=== PATIENT | female | born 1945 | race Caucasian/White ===

== ENCOUNTER 2023-04-18 08:17 | Outpatient (AMB) | payer OTHER, MEDICAID, SELFPAY ==
[2023-04-18 08:23] VITALS: BP 98/60; PULSE 66; O2SAT 96; BMI 24.5
--- NOTE | 2023-04-18 08:23 | MHC.PC.OV ---
Vital Signs 04/18/23 08:23 Height 4 ft 9 in Weight 113 lb 2 oz BMI 24.5 BP 98/60 Blood Pressure Location Rt brachial Position Sitting Pulse 66 Pulse Source Pulse Oximeter Pulse Oximetry (%) 96 Oxygen Delivery Method Room Air Intake Visit Reasons: medication review Allergies procaine [From Novocain] Allergy (Unknown, Verified 04/18/23 08:26) unknown milk [MILK] Adverse Reaction (Unknown, Unverified 04/18/23 08:26) STOMACH UPSET SEASONAL ALLERGIES Allergy (Unknown, Uncoded 04/18/23 08:26) SINUS PROBLEMS From Novocain Adverse Reaction (Mild, Uncoded 04/18/23 08:26) PANIC ATTACK Medication List - Last Reconciled 04/18/23 by VALERY AlvaradoP- amlodipine 10 mg PO DAILY blood pressure test kit-medium As directed cetirizine 10 mg PO DAILY cholecalciferol (vitamin D3) 50 mcg PO DAILY 30 days clonidine HCl 0.2 mg PO DAILY 30 days docusate sodium (Colace) 100 mg PO DAILY lamotrigine 200 mg (2 x 100 mg) PO DAILY 30 days propranolol 20 mg PO BID Tobacco use date assessed: 04/18/23 Fall risk assessment: No Falls in past year Last assessed Fall Risk: 04/18/23 Dental Screening Dental Screen Date: 04/18/23 Did you have a dental visit in the last 12 months?: No Did you have a dental problem in the last 6 months where you did not have access to dental care?: No Was dental information given to patient?: Patient has dentist HPI medication review HPI Details HTN: Blood pressure is stable, managed with amlodipine 10mg, clonidine 0.2mg, and propranolol 20mg bid. BP is lower today, though denies any dizziness. Denies chest pain, shortness of breath, headache, dizziness, and blurred vision. Pt was found to have a 1cm proximal left ureteral stone with mild hydronephrosis (recently). Will refer to urology. Denies fever, chills, hematuria, and flank pain (currently). Due for bone density, will order. Hx of vitamin D deficiency, will order lab. Pt used to smoke a pack per day for many years, has been smoking since age 29. Will refer for low-dose CT. Pt will schedule her own mammo. Told pt that she may get her pneumonia vaccine from her pharmacy. [facility] Surgical History S/P foot surgery, left Family History Father No problems noted. Mother HTN (hypertension) Stroke Sister No problems noted. Daughter No problems noted. Social History Housing: Apartment Alcohol intake: former Patient Tobacco Use Status: Current everyday Tobacco user Cigarettes Per Day: 2 Years Smoked: 10 years ago Packs per year/per ci.00 e-Cigarette/Vaping Use: Never Used Second Hand Smoke Exposure: No Current occupational status: retired Cognitive needs: No Hearing needs: No Vision needs: No Review of Systems Const Reports as per HPI Physical exam (Primary Care) Vital Signs: Last Vital Signs Pulse 66 04/18/23 08:23 BP 98/60 04/18/23 08:23 Pulse Ox 96 04/18/23 08:23 Oxygen Delivery Method Room Air 04/18/23 08:23 BMI result Body Mass Index 24.5 Tobacco/Smoking Status: Tobacco use Status Tobacco use date assessed 04/18/23 04/18/23 08:29 Patient Tobacco Use Status Current everyday Tobacco 04/18/23 08:29 e-Cigarette/Vaping Use Never Used 04/18/23 08:29 Const General: cooperative Orientation/consciousness: patient oriented x3 Resp Effort & Inspection: normal respiratory effort Auscultation: clear to auscultation bilaterally Cardio Rate: regular rate Rhythm: regular rhythm Heart sounds: S1 normal heart sound present and S2 normal heart sound present General: Yes no CVA tenderness Back/Spine/Pelvis Back: no CVA tenderness Neuro General: patient oriented x3 Psych Appearance: grossly normal Mental Status: mental status grossly normal Speech and movement: Normal speech and movement present Affect: normal affect Attitude: cooperative Thought process: Normal thought process present Thought content: Normal thought content present Insight: Good insight present (Psych) Judgement: Good judgement present (Psych) Assessment and Plan Assessment & Plan (1) Kidney stone on left side: Code(s): N20.0 - Calculus of kidney Plan: Referred to urology (2) Hydronephrosis: Code(s): N13.30 - Unspecified hydronephrosis Plan: Referred to urology (3) HTN (hypertension): Code(s): I10 - Essential (primary) hypertension Plan: Labs ordered, continue current meds (4) Post-menopausal: Code(s): Z78.0 - Asymptomatic menopausal state Plan: Bone density ordered (5) Vitamin D deficiency: Code(s): E55.9 - Vitamin D deficiency, unspecified Plan: Vitamin D ordered (6) Smoker: Code(s): F17.200 - Nicotine dependence, unspecified, uncomplicated Plan The patient agreed to the use of a medical coding specialist for this encounter. Scribed for JESSE Mckeon by Shasha Castillo medical coding specialist, on 04/18/2023 at 08:35 EST. Orders: Orders Comprehensive Morris. Panel Fast Today I10 - Essential (primary) hypertension Lipid Panel Today I10 - Essential (primary) hypertension TSH reflex Free T4 Today I10 - Essential (primary) hypertension Complete Blood Count Auto Diff Today I10 - Essential (primary) hypertension UA CC w/rflx Micro + Cult Today I10 - Essential (primary) hypertension XR DEXA axial skeleton Today Z78.0 - Asymptomatic menopausal state Vitamin D 25-OH Total Today E55.9 - Vitamin D deficiency, unspecified Referrals Urology Referral N13.30 - Unspecified hydronephrosis, N20.0 - Calculus of kidney Thoracic Surgery Referral F17.200 - Nicotine dependence, unspecified, uncomplicated Medications: Changed From cetirizine schedule PCP appt for more refills 10 mg PO DAILY 30 tabs 0RF To cetirizine 10 mg PO DAILY 90 tabs 0RF 90 days From cholecalciferol (vitamin D3) 50 mcg PO DAILY 30 days 30 caps 3RF To cholecalciferol (vitamin D3) 50 mcg PO DAILY 90 caps 0RF 90 days Coding Level of Care Code Est Pt Level 3 (36905) Diagnoses Kidney stone on left side N20.0 Hydronephrosis N13.30 HTN (hypertension) I10 Post-menopausal Z78.0 Vitamin D deficiency E55.9 Smoker F17.200
== END 2023-04-18 08:54 | disposition home or self-care (01) ==
PROVIDERS: PCP Nurse Practitioner Family; Visit Provider Nurse Practitioner Family
DX: I10 Essential (primary) hypertension (principal); E55.9 Vitamin D deficiency, unspecified; F17.210 Nicotine dependence, cigarettes, uncomplicated; N20.0 Calculus of kidney; N13.30 Unspecified hydronephrosis; Z78.0 Asymptomatic menopausal state
CPT/HCPCS: 99213

== ENCOUNTER 2023-04-25 08:34 | Outpatient (REF) | payer OTHER, MEDICAID, SELFPAY ==
--- NOTE | ~2023-04-25 | MM_ITS ---
EXAMINATION: BONE DENSITOMETRY CLINICAL INDICATION: Menopause. COMPARISON: Baseline BD dated 10/01/2010. TECHNIQUE: Using a [employer] DXA System (software version: 13.1) manufactured by [employer], dual-energy x-ray absorptiometry was performed of the lumbar spine and left hip. The images are of good technical quality. Summary results are attached. FINDINGS: LEFT FEMUR, NECK: Current: BMD 0.478 g/cm2, Z-score -2.1, T-score -4.0, osteoporosis. Baseline: BMD 0.860 g/cm2. LEFT FEMUR, TOTAL: Current: BMD 0.517 g/cm2, Z-score -2.2, T-score -3.9, osteoporosis, 38.8% decrease from baseline (<5% change is not significant). Baseline: BMD 0.845 g/cm2. AP SPINE L1-L3 (excluding L4): The data of L1-L4 has been changed to exclude the L4 vertebral body, because degenerative sclerosis at this level may cause overestimation of lumbar spine density. Current: BMD 0.958 g/cm2, Z-score -0.1, T-score -1.8, osteopenia, 13.3% decrease from baseline (<5% change is not significant). Baseline: BMD 1.105 g/cm2. IDENTIFIED RISK FACTORS: Menopause, height loss, history of fracture (adult), osteoporosis, tobacco use (current smoker). HISTORY OF FRACTURE: Wrist. MEDICATIONS: Vitamin D. MM/XR DEXA axial skeleton IMPRESSION: 1. DIAGNOSIS: Severe osteoporosis based on the lowest T-score value of -4.0 in the femoral neck and history of fracture of wrist applying World Health Organization criteria. 2. 10-YEAR FRACTURE RISK PREDICTION, FRAX: According to the guidelines, FRAX calculation should only be performed on patients in the osteopenia bone density category. Therefore, FRAX was not performed on this patient. 3. Treatment Recommendations: NOF guidelines recommend consideration for treatment in postmenopausal women and men age 50 and older presenting with the following: -A hip or vertebral (clinical or morphometric) fracture. -T-score less than or equal to -2.5 at the femoral neck or spine after appropriate evaluation to exclude secondary causes. -Low bone mass at the hip or spine and a 10-year fracture probability by FRAX of greater than or equal to 3% for hip fracture or greater than or equal to 20% for major osteoporotic fracture based on the [place] adapted WHO algorithm. 4. Other Recommendations: All treatment decisions require clinical judgment and consideration of individual patient factors, including patient preferences, comorbidities, previous drug use, risk factors not captured in the FRAX model (e.g. frailty, falls, vitamin D deficiency, increased bone turnover, interval significant decline in bone density) and possible under or overestimation of fracture risk by FRAX. Additional medical evaluation for secondary cause of low bone mineral density may be appropriate. FUTURE SCAN RECOMMENDATION: People with diagnosed cases of osteoporosis or at high risk for fracture should have regular bone mineral density tests. For patients eligible for Medicare, routine testing is allowed once every 2 years. The testing frequency can be increased to one year for patients who have rapidly progressing disease, those who are receiving or discontinuing medical therapy to restore bone mass, or have additional risk factors.
== END 2023-04-25 08:35 | disposition home or self-care (01) ==
LOC: HO.MAMMO 08:34
PROVIDERS: PCP Nurse Practitioner Family; Visit Provider Nurse Practitioner Family
DX: Z13.820 Encounter for screening for osteoporosis (principal); Z78.0 Asymptomatic menopausal state
CPT/HCPCS: 77080

== ENCOUNTER → 2023-04-25 08:45 | Outpatient (BNV) | payer OTHER, MEDICAID, SELFPAY | PROVIDERS: PCP Nurse Practitioner Family; Visit Provider Radiology Diagnostic Radiology | DX: M81.0 Age-related osteoporosis without current pathological fracture (principal) | CPT/HCPCS: 77080 ==

== ENCOUNTER 2023-07-01 09:11 | Outpatient (AMB) | payer OTHER, MEDICAID, SELFPAY ==
--- OUTSIDE RECORDS SUMMARY | 2023-07-01 09:12 | XMS_ITS | Continuity of Care Document ---
Author Name Unknown Organization [facility] ter Address [address] [place] [id number]- Care Team Providers Care Counter Clerk [employer] Name Role Phone Jhonathan WILLIAMSON, Etienne Primary Care Physician En[place] [facility] [place] Date(s): 10/26/20 - 11/27/[address] [address] Attending Physician: Momo Gutierrez NP Admitting Physician: Momo Gutierrez NP Referring Physician: Momo Gutierrez NP Allergies, Adverse Reactions, Alerts Substance Reaction Severity Status Novocain Active Medications Amlodipine By Mouth, Daily, Maintenance, 12/10/14 12:20:45 Start Date: 12/10/14 Status: Ordered Dulcolax Tablet 5 mg, By Mouth, Daily, Maintenance, 12/10/14 12:21:16 Start Date: 12/10/14 Status: Ordered Effexor By Mouth, 0 Refills, Maintenance, 12/10/14 12:20:34 Start Date: 12/10/14 Status: Ordered ferrous sulfate 325 mg oral tablet 1 tablet = 325 mg, By Mouth, 3 times a day, 0 Refills, Maintenance, 07/11/17 10:44:38 Start Date: 07/11/17 Status: Ordered Lamotrigine By Mouth, Maintenance, 12/10/14 12:19:38 Start Date: 12/10/14 Status: Ordered Multivitamin By Mouth, Daily, 0 Refills, Maintenance, 12/10/14 12:20:58 Start Date: 12/10/14 Status: Ordered Vitamin D3 By Mouth, 0 Refills, Maintenance, 12/10/14 12:20:04 Start Date: 12/10/14 Status: Ordered Vitamin E By Mouth, Daily, 0 Refills, Maintenance, 07/11/17 10:44:52 Start Date: 07/11/17 Status: Ordered Problem List Condition Effective Dates Status Health Status Inform ant Chronic hepatitis C with cirrhosis(Confirmed) Active Tubular adenoma of colon(Confirmed) 1 06/28/17 Active 1repeat screening colonoscopy in 2019 Social History Social History Type Response Smoking Status Current every day panchito estrada; Tobacco user in household: Yes; Type: Cigarettes entered on: 07/11/17 Sex
--- OUTSIDE RECORDS SUMMARY | 2023-07-01 09:12 | XMS_ITS | Continuity of Care Document ---
Author Name Unknown Organization [facility] Address Unknown Care Team Providers Care Ion Implant Machine Operator Name Role Phone Matt SOTO, Momo Rudolph Primary Care Physician [place] [facility] [place]21 [facility] Attending Physician: Sangeetha Russell NP Referring Physician: Momo Gutierrez NP Allergies, [...] 07/11/17 10:44:38 Start Date: 07/11/17 Status: Ordered hydrocortisone topical 25 mg suppository 1 supp = 25 mg, Rectally, 2 times a day, # 28 supp, 0 Refills, Maintenance, 07/09/21 13:40:00 EST, Suppository, [facility]/pharmacy #[id number], Partial fill upon patient request if the prescription is for a schedule II opioid drug., 145, cm, 07/09/21 13:11:00 EST... Start Date: 07/09/21 Stop Date: 07/23/21 Status: Ordered Lamotrigine By Mouth, Maintenance, 12/10/14 12:19:38 Start Date: 12/10/14 Status: Ordered Multivitamin By Mouth, Daily, 0 Refills, Maintenance, 12/10/14 12:20:58 Start Date: 12/10/14 Status: Ordered NuLYTELY with Flavor Packs oral powder for reconstitution See Instructions, per GI office, # 4,000 mL, 0 Refills, Maintenance, 07/27/21 14:36:00 EST, [facility]pharmacy #[id number], Partial fill upon patient request if the prescription is for a schedule II opioid drug., per GI office, 145, cm, 07/09/21 13:11:00 EST, Height Start Date: 07/27/21 Status: Ordered Vitamin D3 By Mouth, 0 Refills, Maintenance, 12/10/14 12:20:04 Start Date: 12/10/14 Status: Ordered Vitamin E By Mouth, Daily, 0 Refills, Maintenance, 07/11/17 10:44:52 Start Date: 07/11/17 Status: Ordered Problem List Condition Effective Dates Status Health Status Inform ant Chronic hepatitis C with cirrhosis(Confirmed) Active Tubular adenoma of colon(Confirmed) 1 06/28/17 Active 1repeat screening colonoscopy in 2019 Vital Signs Most recent to oldest [Reference Range]: 1 Height 145 cm (10/15/21 9:05 AM) Pulse Rate [55-90 bpm] 89 bpm (10/15/21 9:05 AM) Blood Pressure [90-138/55-84 mm Hg] 150/ 71mm Hg *H* (10/15/21 9:05 AM) Respiratory Rate [16-30 br/min] 16 br/mi n (10/15/21 9:05 AM) Temperature [96.8-100.4 DegF] 97.1 DegF (10/15/21 9:05 AM) Social History Social History Type Response Smoking Status Current every day sm oker; Tobacco user in household: Yes; Type: Cigarettes entered on: 07/11/17 Sex
--- OUTSIDE RECORDS SUMMARY | 2023-07-01 09:12 | XMS_ITS | Continuity of Care Document ---
Author Name Unknown Organization [facility] counts include 234 beds at [facility] Address [address] [place] [address] [address] [place] [address]- Care Team Providers Care Corrective Therapy Aide Teacher Name Role Phone Matt SOTO, Momo Rudolph Primary Care Physician [phone] Encounter [facility] [place] [id number] Date(s): 01/05/23 - 02/16/[address] [place] [address]- Attending Physician: Joe WILLIAMSON, Georgie Weiss Referring Physician: Not on Staff, Referring MD Allergies, Adverse Reactions, Alerts Substance Reaction Severity [...] 0 Refills, Maintenance, 07/09/21 13:40:00 EST, Suppository, [facility]/pharmacy #[id number], Partial fill upon patient request if [...] EST, Height Start Date: 07/27/21 Status: Ordered Propranolol Refills 0, Maintenance, 12/15/22 16:53:00 EDT, Partial fill upon patient request if the prescription is for a schedule II opioid drug. Start Date: 12/15/22 Status: Ordered Vitamin D3 By Mouth, 0 Refills, Maintenance, 12/10/14 12:20:04 Start Date: 12/10/14 Status: Ordered Vitamin E By Mouth, Daily, 0 Refills, Maintenance, 07/11/17 10:44:52 Start Date: 07/11/17 Status: Ordered Problem List Condition Confirmation Course Effective Dates Status Health St at[facility] Informant Chronic hepatitis C with cirrhosis Confirmed Active Hemorrhoids Confirmed Active Tubular adenoma of colon 1 Confirmed 06/28/17 Active 1repeat screening colonoscopy in 2019 Social History Social History Type Response Smoking Status Current every day sm oker; Tobacco user in household: Yes; Type: Cigarettes entered on: 07/11/17 Sex Patient Care team information Care Team Personnel Name: Matt SOTO , Momo Rudolph Position: Reference Physician Member Role: PCP Address: Address: [address] [place] [address]- Care Team Related Persons Name: MAXIME TURNER Address: [place] [address]
--- OUTSIDE RECORDS SUMMARY | 2023-07-01 09:12 | XMS_ITS | Continuity of Care Document ---
Author Name Unknown Organization [facility] Address [address] [place] [address] [address] [place] [address]- Care Team Providers Care Tube Lancer Name Role Phone Matt SOTO, Momo Rudolph Primary Care Physician [place] [facility] [place] - 02/16/[address] [place], [place] [address] Attending Physician: Kristin Abdul Admitting Physician: AdmKristin lazaro Referring Physician: AdmtrKristin Allergies, Adverse Reactions, Alerts Substance Reaction Severity [...] 0 Refills, Maintenance, 07/09/21 13:40:00 EST, Suppository, [facility]/pharmacy #[id number], Partial fill upon patient request if the [...] Care team information Care Team Personnel Name: Momo Gutierrez NP Position: Reference Physician Member Role: PCP Address: Address: [address] [place] [address]- Care Team Related Persons Name: MAXIME TURNER Address: [place] [address]
--- OUTSIDE RECORDS SUMMARY | 2023-07-01 09:12 | XMS_ITS | Continuity of Care Document ---
Author Name Unknown Organization [facility] ter Address [address] [place] [address]- Care Team Providers Care Property And Casualty Insurance Agent Name Role Phone Matt SOTO, Momo Rudolph Primary Care Physician [place] [facility] - 01/28/[address] [address]- Attending Physician: Jeff Gonzalez MD Admitting Physician: Jeff Gonzalez MD Allergies, Adverse Reactions, Alerts Substance Reaction [...] 0 Refills, Maintenance, 07/09/21 13:40:00 EST, Suppository, [facility]/pharmacy #[id number], Partial fill upon patient request if [...]
--- OUTSIDE RECORDS SUMMARY | 2023-07-01 09:12 | XMS_ITS | Continuity of Care Document ---
Author Name Unknown Organization [facility] Address Unknown Care Team Providers Care Project Builder Name Role Phone Matt SOTO, Momo Rudolph Primary Care Physician [place] [facility] [place] 02/02/22 - 02/09/22 [facility] Encounter Diagnosis Hemorrhoids(Discharge Diagnosis) - 02/02/22 Attending Physician: Denise Cox NP Referring Physician: Momo Gutierrez NP Allergies, [...] 0 Refills, Maintenance, 07/09/21 13:40:00 EST, Suppository, [facility]/pharmacy #[id number], Partial fill upon patient request if the [...] ant Chronic hepatitis C with cirrhosis(Confirmed) Active Hemorrhoids(Confirmed) Active Tubular adenoma of colon(Confirmed) 1 06/28/17 Active 1repeat screening colonoscopy in 2019 Diagnosis Diagnosis Type Effective Dates Health Status Clini ge[facility]a Service Informant Hemorrhoids Discharge Diagnosis 02/02/22 Vital Signs Most recent to oldest [Reference Range]: 1 Height 142 cm (02/02/22 1:08 PM) Weight 56.3 kg (02/02/22 1:08 PM) Pulse Rate [55-90 bpm] 73 bpm (02/02/22 1:08 PM) Body Mass Index [18.5-24.99] 27.92 *H* (02/02/22 1:08 PM) Blood Pressure [90-138/55-84 mm Hg] 111/ 68mm Hg (02/02/22 1:08 PM) Respiratory Rate [16-30 br/min] 17 br/mi n (02/02/22 1:08 PM) Temperature [96.8-100.4 DegF] 97.9 DegF (02/02/22 1:08 PM) Temperature Route Temporal (02/02/22 1:08 PM) Social History Social History Type Response Smoking Status Current every day sm oker; Tobacco user in household: Yes; Type: Cigarettes entered on: 07/11/17 Sex
--- OUTSIDE RECORDS SUMMARY | 2023-07-01 09:13 | XMS_ITS | Continuity of Care Document ---
Author Name Unknown Organization [facility] Address [address] [place] [address]- Care Team Providers Care Computing Tutor Name Role Phone Matt SOTO, Momo Rudolph Primary Care Physician [phone] Encounter [facility] Date(s): 12/15/22 - 12/15/[address] [address]- Encounter Diagnosis Calculus of proximal left ureter(Final) - 12/15/22 Cirrhosis(Final) - 12/15/22 Abdominal pain(Final) - 12/15/22 Discharge Disposition: A-D/C Home Attending Physician: Bernardino Quarles MD Admitting Physician: Bernardino Quarles MD Referring Physician: Not on Staff, Referring MD [...] 0 Refills, Maintenance, 07/09/21 13:40:00 EST, Suppository, [facility]/pharmacy #[id number], Partial fill upon patient request if [...] List Condition Confirmation Course Effective Dates Status [facility] Informant Chronic hepatitis C with cirrhosis Confirmed Active Hemorrhoids Confirmed Active Tubular adenoma of colon 1 Confirmed 06/28/17 Active 1repeat screening colonoscopy in 2019 Results Radiology Reports * Exam Date Time Procedure Performing Provider Status 12/15/22 5:[address] Abd/Pelvis W/ IV Contrast Only Rashida Alexander; Auth (Verified) Notes: (CT Abd/Pelvis W/ IV Contrast Only) Reason For Exam: LLQ abdominal pain;Other: RESULT: CT Abd/Pelvis W/ IV Contrast Only CT Abd/Pelvis W/ IV Contrast Only Hx of Present Illness: c o abd pain all over for a long time worse over the last couple of days no n v d noramal bm yesteradyd +po intake denies urianry s s inc wt loss over the last month unable to see pcp; Reason: Other:; LLQ abdominal pain; Clinical Question(s): Diverticulitis; Order Comment: Patient unable to tolerate PO contrast. TECHNIQUE: Spiral CT through the abdomen and pelvis with IV contrast formatted in 3 planes. 100 cc of Omnipaque 300 was administered intravenously. This study was performed without oral contrast. Weight-based protocol using automatic tube modulation was used to optimize exposure parameters. CTDIvol Body: 9.99 mGy, DLP Body: 438 mGy*cm. COMPARISON: MRI 09/20/2019 FINDINGS: Nodular liver contour consistent with the patient's history of cirrhosis. Cholelithiasis. Mild pancreatic ductal dilatation as noted on prior MRI. Too small to characterize low-attenuation foci within the kidneys are likely small cysts. Inferior pole right renal cyst. 0.5 cm left renal stone. 1 cm proximal left ureteral stone with mild left hydronephrosis. Hounsfield measurements of the stone approximately 4245-1728. 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 IMPRESSION: 1 cm proximal left ureteral stone with mild left hydronephrosis. Findings were noted on the MRI from 09/20/2019. Other chronic findings are outlined above. A critical result message ([place]) has been communicated via the [employer] system on 12/15/2022 7:19 PM, Message ID [id number]. WSN: [id number] Ordering Physician: Bernardino Quarles Dictated By: Carrington Brady MD Dictated Date/Time: 12/15/22 7:19 pm Reviewed By: Carrington Brady MD Signed By: Carrington Brady MD Signed Date/Time: 12/15/22 7:19 pm Transcribed By: LESLYE Transcribed Date/Time: 12/15/22 7:09 pm Vital Signs Most recent to oldest [Reference Range]: 1 2 3 Height 150 cm (12/15/22 8:24 PM) 150 cm (12/15/22 7:16 PM) 150 cm (12/15/22 4:53 PM) Weight 50 kg (12/15/22 4:53 PM) Oxygen Saturation [94-100 %] 93 % *L* (12/15/22 8:24 PM) 91 % *L* (12/15/22 7:16 PM) 95 % (12/15/22 4:53 PM) Pulse Rate [55-90 bpm] 72 bpm (12/15/22 8:24 PM) 72 bpm (12/15/22 7:16 PM) 83 bpm (12/15/22 4:53 PM) Blood Pressure [90-138/55-84 mm Hg] 141/88mm Hg *H* (12/15/22 8:24 PM) 143/74mm Hg *H* (12/15/22 7:16 PM) 168/94mm Hg *H* (12/15/22 4:53 PM) Respiratory Rate [16-30 br/min] 18 br/min (12/15/22 7:16 PM) 16 br/min (12/15/22 4:53 PM) Temperature [96.8-100.4 DegF] 98.4 DegF (12/15/22 8:24 PM) 98.4 DegF (12/15/22 4:53 PM) Mode of Delivery (Oxygen) Room air (12/15/22 8:24 PM) Room air (12/15/22 7:16 PM) Room air (12/15/22 4:53 PM) Blood pressure sites Arm, left (12/15/22 8:24 PM) Arm, left (12/15/22 7:16 PM) Temperature Route Oral (12/15/22 8:24 PM) Oral (12/15/22 4:53 PM) Dry Weight 50 kg (12/15/22 4:53 PM) Weight Obtained Via Standing scale (12/15/22 4:53 PM) Dry Weight Obtained Via Standing scale (12/15/22 4:53 PM) Social History Social History Type Response Smoking Status Current every day sm oker; Tobacco user in household: Yes; Type: Cigarettes entered on: 07/11/17 Sex Note * Bernardino Quarles MD: PERFORM Event Display: Patient Education Leaflets Authored Date: Multiple Documents ?? [id number] Unknown Causes of Abdominal Pain (Adult) The exact cause of your belly (abdominal) pain is not clear. Your exam and tests don't suggest a dangerous cause at this time. This does not mean that this is something to worry about. Everyone likesto know the exact cause of the problem. But sometimes with belly pain, there is no clear-cut cause,and this could be a good thing. Your symptoms can be treated, and you should feel better.?? Your condition does not seem serious now. But sometimes the signs of a serious problem may take more time to appear. For this reason,??it's important for you to watch for any new symptoms, problems,??or worsening of your condition. Over the next few days, the abdominal pain may come and go. Or it may be constant. Other common symptoms can include nausea and vomiting. Sometimes it can be difficult to tell if you feel nauseous. You may just feel bad and not connect that feeling to nausea. Constipation, diarrhea, and a fever maygo along with the pain. The pain may continue even if treated correctly over the following days. Depending on how things go, sometimes the cause can become clear and you may need more??or different treatment. You may also need other evaluations, medicines, or tests. Home care Your healthcare provider may prescribe medicine for pain, symptoms, or an infection. ??Follow the healthcare provider's instructions for taking these medicines. General care ??? Rest as much as you can until your next exam. No strenuous activities. ??? Try to not do anything that may have caused your symptoms. This might be not taking any medicines unless otherwise directed by your healthcare provider. It might be not eating certain foods or doing certain activities. ??? Find positions that ease discomfort. A small pillow placed on your belly may help relieve pain. ??? Something warm on your belly such as a heating pad may help, but be careful not to burn yourself. Diet ??? Don???t??force yourself to eat, especially if having cramps, vomiting, or diarrhea. ??? Water is important so you don't get dehydrated. Soup may also be good. Sports drinks may also help, especially if they are not too acidic. Don't drink sugary drinks as this can make things worse. Take liquids in small amounts. Don???t??guzzle them. ??? Caffeine sometimes makes the pain and cramping worse. ??? Don???t take??dairy products if you have vomiting or diarrhea. ??? Don't eat large amounts at a time. Eat several small meals during the day instead of 2 or 3 larger meals. Wait a few minutesbetween bites. ??? Eat a diet low in fiber (called a low-residue diet). Foods allowed include refined breads, white rice, fruit and vegetable juices without pulp, tender meats. These foods will pass more easily through the intestine. ??? Don???t have??whole-grain foods, whole fruits and vegetables,meats, seeds and nuts, fried or fatty foods, dairy, alcohol and spicy foods until your symptoms go away. ?? Follow-up care Follow up with your healthcare provider, or as advised, if your pain does not begin to improve in the next 24 hours. ?? Call 911 Call?? 911 if any of these occur: ??? Trouble breathing ??? Confusion ??? Fainting or loss of consciousness ??? Rapid heart rate ??? Seizure ?? When to seek medical advice Call your healthcare provider right away if any of these occur: ??? Pain gets worse or moves to theright lower abdomen ??? New or worsening vomiting or diarrhea ??? Swelling of the abdomen ??? Unable to pass stool for more than??3 days ??? Fever of 100.4??F (38??C) or higher, or as directed by your healthcare provider ??? Blood in vomit or bowel movements (dark red or black color) ??? Yellow color of eyes and skin (jaundice) ??? Weakness, dizziness ??? Chest, arm, back, neck, or jaw pain ??? Can't keep down medicines, liquids, or water because of too much vomiting ??? If you have a vagina: unexpected vaginal bleeding or missed period ?? Last Reviewed Date: 2021 ?? 6669-3337 [employer]. All rights reserved. This information is not intended as a substitute for professional medical care. Always follow your healthcare professional's instructions. ?? * Bernardino Quarles MD: PERFORM Event Display: Patient Education Leaflets Authored Date: Multiple Documents ?? [id number] Kidney Stone with Pain The sharp cramping pain on either side of your lower back and nausea or vomiting that you have are because of??a small stone that has formed in the kidney. It's now passing down a narrow tube (ureter) on its way to your bladder. Once the stone reaches your bladder, the pain will often decrease. Butit may come back as the stone continues to pass out of the bladder and through the urethra. The ston e may pass in your urine stream in 1 piece. The size may be 1/16 inch to 1/4 inch (1 mm to 6 mm). Or the stone may break up into manuel-like fragments that you may not even notice. Once you have had a kidney stone, you may be at risk of getting another one in the future. There are 4 types of kidney stones. Eighty percent are calcium stones???mostly calcium oxalate but also somewith calcium phosphate. The other 3 types include uric acid stones, struvite stones (from a preceding infection) and, rarely, cystine stones. Most stones will pass on their own. But they may take from a few hours to a few days. Sometimes thestone is too large to pass by itself. In that case, the healthcare provider will need to use??otherways to remove the stone. These methods include: ??? Shock Wave Lithotripsy. This??noninvasive procedure uses high energy sound waves to break up the stone and allow it to easily pass. ??? Ureteroscopy. This??procedure inserts a tool through the urethra and bladder and into the ureter to pull out the stone. This procedure is done under anesthesia. ??? Surgery. You may need surgery to remove the stone. Home care The following are general care guidelines: ??? Drink plenty of fluids. This means at least 12, 8-ounce glasses of fluid???mostly water???a day. ??? Each time you pee (urinate), do so in a jar. Pour the urine from the jar through the strainer and into the toilet. Continue doing this until 24 hours after your pain stops. By then, if there was a kidney stone, it should pass from your bladder. Some stones dissolve into sand-like particles and pass right through the strainer. In that case, you won???t ever see a stone. ??? Save any stone that you find in the strainer and bring it to your healthcare provider for a detailed exam. It may be possible to stop certain types of stones from forming. Forthis reason, it's important to know what kind of stone you have. ??? Try to stay as active as possible. This will help the stone pass. Don't stay in bed unless your pain keeps you from getting up. You may notice a red, pink, or brown color to your urine. This is normal while passing a kidney stone.??? If you develop pain, you may take ibuprofen or naproxen for pain, unless another medicine was pr escribed.??Talk with your healthcare provider before using these medicines if you have chronic liver or kidney disease. Or if you've??had a stomach ulcer or digestive bleeding. ?? Preventing??stones Each year for the next 5 to??7 years,??you are at risk that??a??new stone will form. Your risk is a50% chance over this time period.??The risk is higher??if you have a family history of kidney stones or have certain chronic illnesses like high blood pressure, obesity, or??diabetes.?Making changes to your lifestyle and diet may lower your??risk for another stone. Most kidney stones are made of calcium. The following is advice for preventing another??calcium stone.??If you don???t know the type of stone you have, follow this advice until the cause of your stone is found. Things that help: ??? The most important thing you can do is to drink plenty of fluids each day. See home care above.? Eat foods that contain phytates. These include??wheat, rice, rye, barley, and beans. Phytates are substances that may lower your risk for??any type of stone to form. ??? Eat more fruits and vegetables.??Choose those that are??high in potassium. ??? Eat foods high in natural citrate, such as??fruit and low-sugar fruit juices, such as lemon juice. Citrate can protect againstkidney stones because it stops crystals from turning into stones ??? Having too little calcium in your diet can put you at risk for??calcium??kidney stones. Eat a normal amount of calcium in your diet and talk??with your healthcare provider??if you are taking calcium supplements. Cutting back on your calcium intake may raise your risk.??New research shows that eating calcium-rich and oxalate-richfoods together lowers your risk for stones by binding the minerals in the stomach and intestines before they can reach the kidneys. ? Limit salt intake to 2??grams (1??teaspoon) per day. High sodium in your diet will increase the amount of calcium sent into your urine. This can increase your chances of developing another stone. Use limited amounts when cooking, and don???t add salt at the table.??Processed and canned foods are usually high in salt.? Spinach, rhubarb, peanuts, cashews, almonds, grapefruit, and grapefruit juice are all high oxalate foods. You should limit how much of these you eat or??eat them with??calcium-rich foods. These include dairy products, dark leafy greens, soy products, and calcium-enriched foods. ??? Reducing the amount of animal meat, shellfish, and high protein foods in your diet may lower your risk for uric acid stones. These foods have high amounts of a natural chemical compound called purines. Eating a lot of food with purines can make your body produce more uric acid. Limiting alcohol is also recommended to decrease uric acid production. ??? Limit the amount of sugar (sucrose) and soft drinks with fructose in??your??diet.? If you take vitamin C as a supplement, don't take more than 1,000 mg a day. ??? A dietitian or your healthcareprovider can give you??information about??changes in your diet that will help prevent more??kidney stones from forming. ?? Follow-up care Follow up with your??healthcare provider, or as advised,??if the pain lasts more than 48 hours. Talk with your provider about urine and blood tests to find out the cause of your stone. If you had an X-ray, CT scan, or other diagnostic test, you will be told of any new findings that may affect your care. ?? Call 911 Call 911 if you have: ??? Weakness, dizziness, or fainting ?? When to get medical care Call your healthcare provider right away if any of these occur: ??? Pain that is not controlled by the medicine given ??? Repeated vomiting or unable to keep down fluids ??? Fever of 100.4??F (38??C)or higher, or as advised by your provider ??? Passage of solid red or brown urine (can't see through it) or urine with lots of blood clots ??? Foul-smelling or cloudy urine ??? Unable to pee for 8 hours and increasing bladder pressure ?? Last Reviewed Date: 2022 ?? [id number] [employer]. All rights reserved. This information is not intended as a substitute for professional medical care. Always follow your healthcare professional's instructions. ?? CT Abdomen and Pelvis W contrast IV * GELA Carlson S: KARLA Brady MD, Carrington Lopez: VERIFY Event Display: Result: Authored Date: [id number] CT Abd/Pelvis W/ IV Contrast Only Hx of Present Illness: c o abd pain all over for a long time worse over the last couple of days no n v d noramal bm yesteradyd +po intake denies urianry s s inc wt loss over the last month unable to see pcp; Reason: Other:; LLQ abdominal pain; Clinical Question(s): Diverticulitis; Order Comment: Patient unable to tolerate PO contrast. TECHNIQUE: Spiral CT through the abdomen and pelvis with IV contrast formatted in 3 planes. 100 cc of Omnipaque 300 was administered intravenously. This study was performed without oral contrast. Weight-based protocol using automatic tube modulation was used to optimize exposure parameters. CTDIvol Body: 9.99 mGy, DLP Body: 438 mGy*cm. COMPARISON: MRI 09/20/2019 FINDINGS: Nodular liver contour consistent with the patient's history of cirrhosis. Cholelithiasis. Mild pancreatic ductal dilatation as noted on prior MRI. Too small to characterize low-attenuation foci within the kidneys are likely small cysts. Inferior pole right renal cyst. 0.5 cm left renal stone. 1 cm proximal left ureteral stone with mild left hydronephrosis. Hounsfield measurements of the stone approximately 5926-7504. 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 IMPRESSION: 1 cm proximal left ureteral stone with mild left hydronephrosis. Findings were noted on the MRI from 09/20/2019. Other chronic findings are outlined above. A critical result message ([place]) has been communicated via the [employer] system on 12/15/2022 7:19 PM, Message ID [id number]. WSN: [id number] Ordering Physician: Bernardino Quarles Dictated By: Carrington Brady MD Dictated Date/Time: 12/15/22 7:19 pm Reviewed By: Carrington Brady MD Signed By: Carrington Brady MD Signed Date/Time: 12/15/22 7:19 pm Transcribed By: LESLYE Transcribed Date/Time: 12/15/22 7:09 pm Patient Care team information Care Team Personnel Name: Matt SOTO , Momo Rudolph Position: Reference Physician Member Role: PCP Address: Address: [address] [place] [id number] Name: Wiht Barber Position: [facility] ED OA Member Role: Patient Care Provider Name: Bernardino Quarles MD Position: [facility] ED Medicine MD Member Role: Admitting Physician Address: Address: [address] [place] [address] Department [place] [address]- Name: Hosea Valdes RN Position: [facility] ED RN W/OE and Tasks Member Role: Patient Care Provider Care Team Related Persons Name: MAXIME TURNER Address: [place] [address]
--- OUTSIDE RECORDS SUMMARY | 2023-07-01 09:13 | XMS_ITS | Continuity of Care Document ---
Author Name Unknown Organization [facility] Address [address] [place] [id number]- Care Team Providers Care Inspector And Mender Name Role Phone Matt SOTO, Momo Rudolph Primary Care Physician [phone] [place] [facility] [place] 01/10/[address] [address] Discharge Disposition: A-D/C Home Attending Physician: Jeff Gonzalez MD Admitting Physician: Jeff Gonzalez MD Referring Physician: Jeff Gonzalez MD Allergies, Adverse Reactions, [...] 0 Refills, Maintenance, 07/09/21 13:40:00 EST, Suppository, [facility]/pharmacy #[id number], Partial fill upon patient request [...] mL, 0 Refills, Maintenance, 07/27/21 14:36:00 EST, [facility]/pharmacy #[id number], Partial fill upon patient request [...] 06/28/17 Active 1repeat screening colonoscopy in 2019 Procedures Procedure Date Related Diagnosis Body Site Status Colonoscopy 01/10/22 Completed Vital Signs Most recent to oldest [Reference Range]: 1 2 3 Height 142 cm (01/10/22 12:32 PM) Oxygen Saturation [94-100 %] 96 % (01/10/22 1:31 PM) 95 % (01/10/22 1:21 PM) 95 % (01/10/22 12:32 PM) Pulse Rate [55-90 bpm] 73 bpm (01/10/22 12:32 PM) Blood Pressure [90-138/55-84 mm Hg] 117/78mm Hg (01/10/22 1:31 PM) 93/55mm Hg (01/10/22 1:21 PM) 156/81mm Hg *H* (01/10/22 12:32 PM) Respiratory Rate [16-30 br/min] 20 br/min (01/10/22 1:31 PM) 22 br/min (01/10/22 1:21 PM) 18 br/min (01/10/22 12:32 PM) Temperature [96.8-100.4 DegF] 98.6 DegF (01/10/22 12:32 PM) Mode of Delivery (Oxygen) Room air (01/10/22 1:31 PM) Room air (01/10/22 1:21 PM) Room air (01/10/22 12:32 PM) Blood pressure sites Arm, left (01/10/22 1:31 PM) Arm, left (01/10/22 1:21 PM) Arm, left (01/10/22 12:32 PM) Temperature Route Temporal (01/10/22 12:32 PM) Dry Weight 54.5 kg (01/10/22 12:32 PM) Dry Weight Obtained Via Patient/family s tated (01/10/22 12:32 PM) Social History Social History Type Response Smoking Status Current every day panchito estrada; Tobacco user in household: Yes; Type: Cigarettes entered on: 07/11/17 Sex
--- OUTSIDE RECORDS SUMMARY | 2023-07-01 09:13 | XMS_ITS | Continuity of Care Document ---
Author Name Unknown Organization [facility] Address Unknown Care Team Providers Care Bleach Chlorinator Name Role Phone Matt SOTO, Momo Rudolph Primary Care Physician [place] [facility] [place] 02/02/22 - 03/04/22 [facility] Attending Physician: Kristin Abdul Admitting Physician: Kristin Abdul Referring Physician: Kristin Abdul Allergies, Adverse Reactions, Alerts Substance Reaction Severity [...] 0 Refills, Maintenance, 07/09/21 13:40:00 EST, Suppository, [facility]/pharmacy #[id number], Partial fill upon [...]
--- OUTSIDE RECORDS SUMMARY | 2023-07-01 09:13 | XMS_ITS | Continuity of Care Document ---
Author Name Unknown Organization [facility] Address Unknown Care Team Providers Care Driver Helper Name Role Phone Matt SOTO, Momo Rudolph Primary Care Physician [phone] En[place] [facility] [place] Date(s): 03/05/21 - 04/28/21 [facility] Attending Physician: Sangeetha Russell NP Referring Physician: Caesar Ring MD Allergies, Adverse Reactions, Alerts Substance Reaction [...]
--- OUTSIDE RECORDS SUMMARY | 2023-07-01 09:13 | XMS_ITS | Continuity of Care Document ---
Author Name Unknown Organization [facility] Address Unknown Care Team Providers Care Welfare Supervisor Name Role Phone Matt SOTO, Momo Rudolph Primary Care Physician En[place] [facility] [place] Date(s): 10/15/21 - 11/14/21 [facility] Attending Physician: Kristin Abdul Admitting Physician: Kristin Adbul Referring Physician: Kristin Abdul Allergies, Adverse Reactions, [...] 0 Refills, Maintenance, 07/09/21 13:40:00 EST, Suppository, [facility]/pharmacy #[id number], Partial fill upon patient request if the [...] Response Smoking Status Current every day panchito okshameka; Tobacco user in household: Yes; Type: Cigarettes entered on: 07/11/17 Sex
--- OUTSIDE RECORDS SUMMARY | 2023-07-01 09:13 | XMS_ITS | Continuity of Care Document ---
Author Name Unknown Organization [facility] Address Unknown Care Team Providers Care Dry Cell Sealer Name Role Phone Matt SOTO, Momo Rudolph Primary Care Physician [phone] Encounter [facility] [place] Date(s): 10/15/21 - 10/22/21 [facility] Encounter Diagnosis Hemorrhoids(Discharge Diagnosis) - 10/15/21 Attending Physician: Denise Cox NP Allergies, Adverse Reactions, Alerts Substance Reaction [...] 0 Refills, Maintenance, 07/09/21 13:40:00 EST, Suppository, [facility]/pharmacy #[id number], Partial fill upon patient request [...] [facility] Service Informant Hemorrhoids Discharge Diagnosis 10/15/21 Social History Social History Type Response Smoking Status Current every day panchito estrada; Tobacco user in household: Yes; Type: Cigarettes entered on: 07/11/17 Sex
--- OUTSIDE RECORDS SUMMARY | 2023-07-01 09:13 | XMS_ITS | Continuity of Care Document ---
Author Name Unknown Organization [facility] Address Unknown Care Team Providers Care Source Inspector Name Role Phone Matt SOTO, Momo Rudolph Primary Care Physician [place] [facility] [place]16/21 [facility] Attending Physician: Georgie Diaz MD Referring Physician: Momo Gutierrez NP Allergies, Adverse [...] 0 Refills, Maintenance, 07/09/21 13:40:00 EST, Suppository, [facility]/pharmacy #[id number], Partial fill upon patient request [...] oldest [Reference Range]: 1 Height 145 cm (07/09/21 1:11 PM) Weight 56.1 kg (07/09/21 1:11 PM) Pulse Rate [55-90 bpm] 86 bpm (07/09/21 1:11 PM) Body Mass Index [18.5-24.99] 26.68 *H* (07/09/21 1:11 PM) Blood Pressure [90-138/55-84 mm Hg] 121/ 74mm Hg (07/09/21 1:11 PM) Respiratory Rate [16-30 br/min] 16 br/mi n (07/09/21 1:11 PM) Temperature [96.8-100.4 DegF] 98 DegF (07/09/21 1:11 PM) Social History Social History Type Response Smoking Status Current every day panchito estrada; Tobacco user in household: Yes; Type: Cigarettes entered on: 07/11/17 Sex
--- OUTSIDE RECORDS SUMMARY | 2023-07-01 09:13 | XMS_ITS | Continuity of Care Document ---
Author Name Unknown Organization [facility] Address Unknown Care Team Providers Care Lock Setter Name Role Phone Matt SOTO, Momo Rudolph Primary Care Physician [phone] [place] [facility] [place] 01/28/22 - 02/27/22 [facility] Allergies, Adverse Reactions, Alerts Substance Reaction Severity [...] 0 Refills, Maintenance, 07/09/21 13:40:00 EST, Suppository, [facility]/pharmacy #[id number], Partial fill upon patient request if the prescription is for a schedule II opioid drug., 145, cm, 07/09/21 13:11:00 EST... Start Date: 07/09/21 Stop Date: 07/23/21 Status: Ordered Lamotrigine By Mouth, Maintenance, 12/10/14 12:19:38 Start Date: 12/10/14 Status: Ordered Multivitamin By Mouth, Daily, 0 Refills, Maintenance, 12/10/14 12:20:58 Start Date: 4/15/15 Status: Ordered NuLYTELY with Flavor Packs oral powder for reconstitution See Instructions, per GI office, # 4,000 mL, 0 Refills, Maintenance, 07/27/21 14:36:00 EST, [facility]/pharmacy #[id number], Partial fill upon patient request [...]
--- NOTE | 2023-07-01 09:30 | MHC.OFFWIV ---
Intake Vital Signs 07/01/23 09:41 Height 4 ft 9 in Weight 120 lb 6 oz BMI 26.0 BP 122/70 Blood Pressure Location Rt brachial Position Sitting Pulse 65 Pulse Source Pulse Oximeter Temp 97.8 F Temp Source Temporal Artery Scan Pulse Oximetry (%) 95 Oxygen Delivery Method Room Air Intake Visit Reasons: EP Intake Note: pt is here for c/o nerve pain feeling burning and zapping feelings all over body, states she hears her pulse in her ears Patient Tobacco Use Status: Current everyday Tobacco user Allergies procaine [From Novocain] Allergy (Unknown, Verified 07/01/23 09:42) unknown milk [MILK] Adverse Reaction (Unknown, Verified 07/01/23 09:42) STOMACH UPSET SEASONAL ALLERGIES Allergy (Unknown, Uncoded 04/18/23 08:26) SINUS PROBLEMS From Novocain Adverse Reaction (Mild, Uncoded 04/18/23 08:26) PANIC ATTACK Do you need a note to return to daycare/school/sports/work: Yes HPI EP HPI Details Patient is a 78-year-old female comes to the walk-in clinic complaining of burning zapping nerve type pain all over her body, for many months now. She also complains of being able to hear her pulse associated with the pain. She states that this has been an issue for her ever since weaning herself off of longstanding use of benzodiazepines about a year ago. She comes in with her daughter who reports a history of severe anxiety along with PTSD history and had she had been on multiple medications for this. She states that sleeping is the worst time for her, as she has insomnia already. She has an apparent seizure disorder also, and reports that the PCP office had requested that she have a specialist refill her seizure medication. She doesn't currently have a neurologist. She denies syncopal episodes, headaches, nausea/vomiting, dizziness, myalgias, malaise, or other associated symptoms. Reviewed medical history with the patient and her daughter [facility] Medical History (Updated 05/17/23 @ 10:55 by Katherine Nice RN) Osteoporosis Surgical History S/P foot surgery, left Family History Father No problems noted. Mother HTN (hypertension) Stroke Sister No problems noted. Daughter No problems noted. Social History Housing: Apartment Alcohol intake: former Patient Tobacco Use Status: Current everyday Tobacco user Cigarettes Per Day: 2 Years Smoked: 10 years ago e-Cigarette/Vaping Use: Never Used Second Hand Smoke Exposure: No Current occupational status: retired Cognitive needs: No Hearing needs: No Vision needs: No Review of Systems Const All systems reviewed & are unremarkable except as noted in HPI and below Physical Exam Vital Signs: Last Vital Signs Temp 97.8 F 07/01/23 09:41 Pulse 65 07/01/23 09:41 BP 122/70 07/01/23 09:41 Pulse Ox 95 07/01/23 09:41 Oxygen Delivery Method Room Air 07/01/23 09:41 BMI result Body Mass Index 26.0 Const General: cooperative, healthy appearing, comfortable, no acute distress, alert, awake, Physically active, anxious and well groomed; No diaphoretic, ill appearing, intoxicated appearing, poor hygiene or tired appearing Nutritional Appearance: average body habitus Orientation/consciousness: patient oriented x3 Limitations: no limitations Eyes General: appearance normal, both eyes and all related structures Resp Effort & Inspection: normal respiratory effort, able to speak in complete sentences, no audible wheezes, no cough, no grunting, not labored, no nasal flaring, no retractions and symmetric chest movement Skin Other: Good color, warm and dry Neuro General: patient oriented x3 Psych Appearance: grossly normal Mental Status: mental status grossly normal Speech and movement: Normal speech and movement present Affect: normal affect Attitude: cooperative Thought process: Normal thought process present Insight: Good insight present (Psych) Judgement: Good judgement present (Psych) Assessment & Plan Assessment & Plan (1) Nerve pain: Code(s): M79.2 - Neuralgia and neuritis, unspecified Plan We discussed how she would likeley benefit from a neuro consult, both from the seizure medication standpoint as well as for these complaints. She also had outstanding labs still pending from PCP that hadn't been completed yet, including thyroid. I advised that she get the labwork done, and that I would forward a copy of her note to her PCP Momo Gutierrez to see if he concurs with a neuro referral and can get this going for her, if that was the case. Patient and her daughter were happy with the plan. We also discussed possibly trialing gabapentin again, as she had taken for another issue in the past, but she was hesitant to restart it as she didn't like the side effects. She can discuss this further with PCP or specialist. Coding Level of Care Code Est Pt Level 4 (46815) Diagnoses Nerve pain M79.2
[2023-07-01 09:41] VITALS: BP 122/70; PULSE 65; TEMP 36.6; O2SAT 95; BMI 26.0
== END 2023-07-01 10:05 | disposition home or self-care (01) ==
PROVIDERS: PCP Nurse Practitioner Family; Visit Provider Physician Assistant Medical
DX: M79.2 Neuralgia and neuritis, unspecified (principal)
CPT/HCPCS: 99051; 99214

== ENCOUNTER 2023-07-01 10:12 | Outpatient (REF) | payer OTHER, MEDICAID, SELFPAY ==
[2023-07-01 11:06] LABS: MANUAL DIFF FLAG NO
[2023-07-01 11:18] LABS: Basophils Absolute Auto 0.1 X10*3/uL (0.0-0.2); Basophils Percent Auto 0.7 % (0-2); Eosinophils Absolute Auto 0.2 X10*3/uL (0.0-0.4); Eosinophils Percent Auto 3.1 % (0-4); Hematocrit 40.8 % (37.0-47.0); Hemoglobin 14.3 g/dl (12.0-16.0); Imm Gran Abs Auto 0.01 X10*3/uL (0.00-0.03); Imm Gran Pct Auto 0.1 % (0.0-0.4); Lymphocytes Absolute Auto 3.3 X10*3/uL (1.2-4.9); Lymphocytes Percent Auto 44.4 % (20-40); Mean Corpuscular Hemoglobin 31.5 pg (27.0-33.0); Mean Corpuscular Volume 89.9 fL (80.0-98.0); Mean Platelet Volume 9.4 fL (9.4-12.3); Monocytes Absolute Auto 0.8 X10*3/uL (0.1-1.2); Monocytes Percent Auto 10.6 % (2-11); Neutrophils Absolute Auto 3.1 x10*3/uL (2.0-8.3); Neutrophils Percent Auto 41.1 % (45-73); Platelet Count 253 X10*3/uL (160-400); Red Blood Count 4.54 X10*6/uL (4.20-5.50); Red Cell Distribution Width 11.7 % (11.0-16.0); White Blood Count 7.4 X10*3/uL (4.8-10.8)
[2023-07-01 11:21] LABS: Appearance Urine Clear; Color Urine Yellow; Glucose Urine UA Negative (Negative); Leukocyte Esterase Urine Small (1+) (Negative); Nitrite Urine Negative (Negative); PH 5.5 (5.0-9.0); UMIC TRIGGER UACC YES; Urine Blood Negative (Negative); Urine Ketones Negative (Negative); Urine Protein Negative (Neg-Trace)
[2023-07-01 11:28] LABS: Bacteria Urine None Seen (None Seen); Hyaline Casts Urine 0-2 /LPF (0-2); UACC Culture Trigger YES
[2023-07-01 12:01] LABS: Alanine Aminotransferase 16 U/L (0-31); Albumin Level 4.5 g/dL (3.5-5.0); Alkaline Phosphatase 118 U/L (39-117); Anion Gap 13 (12-20); Aspartate Amino Transferase 19 U/L (5-31); Bilirubin Total 0.3 mg/dL (0.0-1.0); Blood Urea Nitrogen 21 mg/dL (9-16); Calcium 9.7 mg/dL (8.4-10.2); Carbon Dioxide 25 mmol/L (22-29); Chloride 104 mmol/L (96-108); Cholesterol 193 mg/dL (<200); Estimated Glomerular Filt Rate > 60; Glucose Fasting 113 mg/dL (60-99); HDL Cholesterol 44 mg/dL (>40); LDL Cholesterol Calculated 131 mg/dL (<100); Potassium 3.7 mmol/L (3.3-5.1); Sodium 138 mmol/L (135-145); Total Protein 8.1 g/dL (6.5-8.0); Triglycerides 92 mg/dL (<150)
[2023-07-01 12:19] LABS: TSH reflex Free T4 1.73 uIU/mL (0.32-4.0)
[2023-07-01 12:20] LABS: Vitamin D 25-OH Total 54.8 ng/mL (>30)
== END 2023-07-01 10:13 | disposition home or self-care (01) ==
LOC: HO.HMGCLDS 10:12
PROVIDERS: PCP Nurse Practitioner Family; Visit Provider Nurse Practitioner Family
DX: I10 Essential (primary) hypertension (principal); E55.9 Vitamin D deficiency, unspecified; R82.90 Unspecified abnormal findings in urine
CPT/HCPCS: 36415; 80053; 80061; 81001; 82306; 84443; 85025; 87086

== ENCOUNTER 2023-10-18 12:56 | Outpatient (AMB) | payer OTHER, MEDICAID, SELFPAY ==
[2023-10-18 13:20] VITALS: BP 122/76; PULSE 76; O2SAT 96; BMI 27.0
--- NOTE | 2023-10-18 13:21 | AM.OFFVISMDC ---
Intake Vital Signs 10/18/23 13:20 Height 4 ft 9 in Weight 125 lb BMI 27.0 BP 122/76 Blood Pressure Location Lt brachial Position Sitting Pulse 76 Pulse Source Pulse Oximeter Pulse Oximetry (%) 96 Oxygen Delivery Method Room Air Intake Visit Reasons: SWV G0439 Intake Note: pt is here for medicare wellness visit Php Programmer Required: No Allergies procaine [From Novocain] Allergy (Unknown, Verified 10/18/23 13:45) unknown milk [MILK] Adverse Reaction (Unknown, Verified 10/18/23 13:45) STOMACH UPSET SEASONAL ALLERGIES Allergy (Unknown, Uncoded 10/18/23 13:45) SINUS PROBLEMS From Novocain Adverse Reaction (Mild, Uncoded 10/18/23 13:45) PANIC ATTACK Medication List - Last Reconciled 10/18/23 by JESSE Alvarado amlodipine 10 mg PO DAILY blood pressure test kit-medium As directed cetirizine 10 mg PO DAILY 90 days cholecalciferol (vitamin D3) 50 mcg PO DAILY 90 days clonidine HCl 0.2 mg PO DAILY docusate sodium (Colace) 100 mg PO DAILY lamotrigine 200 mg (2 x 100 mg) PO DAILY 30 days propranolol 20 mg PO BID HPI SWV G0439 HPI Details Pt is here for an SWV. Denies fever, chills, and dizziness. [place] of care in scan pile. PPP will be scanned in chart and copy will be given to pt. [facility] Medical History Osteoporosis Surgical History S/P ureteral stent placement S/P foot surgery, left Family History Father No problems noted. Mother HTN (hypertension) Stroke Sister No problems noted. Daughter No problems noted. Social History Housing: Apartment Alcohol intake: former Patient Tobacco Use Status: Current everyday Tobacco user Cigarettes Per Day: 2 Years Smoked: 10 years ago e-Cigarette/Vaping Use: Never Used Second Hand Smoke Exposure: No Current occupational status: retired Cognitive needs: No Hearing needs: No Vision needs: No Questionnaire Medicare Wellness Checkup [age] What gender do you identify with?: female During the past 4 weeks, how much have you been bothered by emotional problems such as feeling anxious, depressed, irritable, sad or downhearted, and blue?: moderately During the past 4 weeks, has your physical & emotional health limited your social activities with family, friends, neighbors, or groups?: not at all During the past 4 weeks, how much bodily pain have you generally had?: moderate pain During the past 4 weeks, was someone available to help you if you needed & wanted help?: yes, as much as I wanted During the past 4 weeks, what was the hardest physical activity you could do for at least 2 minutes?: moderate Can you get to places out of walking distance without help? (For eg., can you travel alone on buses, taxis or drive your car?): No Can you go shopping for groceries or clothes without someone's help?: No Can you prepare your own meals?: Yes Can you do your housework without help?: No Because of any health problems, do you need the help of another person with your personal care needs such as eating, bathing, dressing or getting around the house?: No Can you handle your own money without help?: Yes During the past 4 weeks, how would you rate your health in general?: very good During the past 4 weeks how have things been going for you?: very well; could hardly better Are you having difficulties driving your car?: not applicable, I don't use a car Do you always fasten your seat belt when you are in a car?: yes, usually During past 4 weeks, have you been bothered by the following: never: Falling or dizzy when standing up, Sexual problems?, Trouble eating well?, Teeth or denture problems?, Problems using the telephone? and Tiredness or fatigue? Have you fallen 2 or more times in the past year?: No Are you afraid of falling?: Yes Are you a smoker?: yes, and I might quit During the past 4 weeks, how many drinks of wine, beer, or other alcoholic beverages did you have?: no alcohol at all Do you exercise for about 20 minutes 3 or more times a week?: yes, some of the time Have you been given information to help with the following?: yes: Hazards in your house that might hurt you? and yes: Keeping track of your medications? How often do you have trouble taking medicines the way you have been told to take them?: I always take medicine as prescribed How confident are you that you can control & manage most of your health problems?: somewhat confident What is your race?: White Mini Mental State Exam (MMSE) Orientation What is the (year) (season) (date) (day) (month)?: year (2023) Where are we (state) (county) (town or city) (hospital) (floor[place] state [place] Registration Name of 3 unrelated objects clearly and slowly, then ask patient to repeat all 3 of them. (1st repeat determines score. Make sure they can repeat all three): object 1, object 2 and object 3 Attention & Calculation (CHOOSE ONE) Spell WORLD backwards (DLROW): 5 letters Recall Ask patient to repeat the 3 items from question #3.: object 1, object 2 and object 3 Language Show patient a wristwatch & ask what it is. Repeat for pencil.: watch and pencil Ask the patient to repeat the phrase 'No ifs, ands, or buts' after you.: correct Ask the patient to 'take a piece of paper with their right hand' 'fold paper in half' 'place paper on floor': take paper in right hand, fold paper in half and place paper on floor Print the sentence 'CLOSE YOUR EYES' on a piece. If patient actually closes eyes then score.: followed written direction Give patient a blank piece of paper & ask to write a sentence. Score if it contains a noun & verb.: sentence contains subject and verb Ask patient to copy figure of intersecting pentagons exactly. Score if all 10 angles & 2 intersects are included.: all 10 angles present & 2 are intersected Score Score: 22 Activity of Daily Living Bathing - sponge bath, tub bath or shower: receives no assistance (gets in/out by self, if usual bathing means Dressing - getting clothes from closets & drawers, including inner/outer garments & fasteners.: gets clothes & gets completely dressed without help Toileting - going to the 'toilet room' for urine/bowel elimination & cleaning self/arranging clothes: goes to toilet room, cleans self, arranges clothes without help Transfer: moves in & out of bed and chair without help (may use support object) Continence: controls urination/bowel movements completely by self Feeding: feeds self without help Total Score: 0 Information obtained from: patient Using telephone: independent Traveling: dependent Shopping: dependent Preparing meals: independent Housework: independent Taking medicine: independent Managing money: needs assistance PHQ-9 Over the last 2 weeks, how often have you been bothered by any of the following problems? 1. Little interest or pleasure in doing things: several days 2. Feeling down, depressed, or hopeless: several days 3. Trouble falling or staying asleep, or sleeping too much: nearly every day 4. Feeling tired or having little energy: several days 5. Poor appetite or overeating: not at all 6. Feeling bad about yourself - or that you are a failure or have let yourself or your family down: not at all 7. Trouble concentrating on things, such as reading the newspaper or watching television: several days 8. Moving or speaking so slowly that other people could have noticed. Or the opposite - being so fidgety or restless that you have been moving around a lot more than usual: not at all 9. Thoughts that you would be better off or of hurting yourself in some way: not at all Total score: 7 Depression Screening Interpretation: Negative (pt does have a therapist) Depression Screening Done: Yes 06128 - PHQ-9 Billing: Yes Source: Developed by Drs. Bill Lizama, Yun Belcher, Xander Villalpando and colleagues, with an educational fermin from [employer]. CLIFFORD-7 AMB Questionnaire CLIFFORD-7 Date CLIFFORD - 7 assessed: 10/18/23 Feeling nervous, anxious, or on edge: 3 = Nearly every day Not being able to stop or control worryin = Nearly every day Worrying too much about different things: 3 = Nearly every day Trouble relaxin = Nearly every day Being so restless that it is hard to sit still: 3 = Nearly every day Becoming easily annoyed or irritable: 1 = Several days Feeling afraid as if something awful might happen: 2 = More than half the days Total CLIFFORD-7 score (0-4 normal; 5-9 mild; 10-14 moderate; 15-21 severe): 18 Source: Developed by Drs. Bill Lizama, Yun Belcher, Xander Villalpando and colleagues, with an educational fermin from [employer]. CLIFFORD-7 Assessment Billing CLIFFORD-7 Assessment Tool: CLIFFORD-7 Assessment 08635 (pt has a therapist, denies any si or hi) Thrive Questionnaire Date Thrive assessed: 10/18/23 I am a: Patient What is your living situation today?: I have a steady place to live Within the past 12 months, did the food you bought not last and you didn't have the money to get more?: Never true Within the past 12 months, did you worry whether your food would run out before you got money to buy more?: Never true Do you have trouble paying for medicines?: No Do you have trouble getting transportation to medical appointments?: No Do you have trouble paying your heating and electricity bill?: No Do you have trouble taking care of your child, family member or friend?: No Do you have trouble with day-to-day activities such as bathing, preparing meals, shopping, managing finances, etc.?: No Are you currently unemployed and looking for a job?: No Are you interested in more education?: No Please select the resources that you would like help with: None Currently or been in a relationship where the following occur: no concerns reported THRIVE Score: 0 Review of Systems Const Reports as per HPI Physical Exam Vital Signs: Last Vital Signs Pulse 76 10/18/23 13:20 BP 122/76 10/18/23 13:20 Pulse Ox 96 10/18/23 13:20 Oxygen Delivery Method Room Air 10/18/23 13:20 BMI result Body Mass Index 27.0 Const General: cooperative Orientation/consciousness: patient oriented x3 Neuro Other: - romberg, can tandem walk, can walk and turn, can rise from sitting to standing, passed whisper test General: patient oriented x3 Psych Appearance: grossly normal Mental Status: mental status grossly normal Speech and movement: Normal speech and movement present Affect: normal affect Attitude: cooperative Thought process: Normal thought process present Thought content: Normal thought content present Insight: Good insight present (Psych) Judgement: Good judgement present (Psych) Assessment & Plan Assessment & Plan (1) Encounter for annual wellness visit (AWV) in Medicare patient: Code(s): Z00.00 - Encounter for general adult medical examination without abnormal findings Plan: 6 month follow up. daughter is HCP and primary healthcare architect Orders: Orders MM screening mammo BI Today Z12.31 - Encounter for screening mammogram for malignant neoplasm of breast Quality Reporting (2019) Depression/Bipolar (159/160/161/177) PHQ-9: Total score: 7 Coding Level of Care Code Medicare Subsequent (G0439) Diagnoses Encounter for annual wellness visit (AWV) in Medicare patient Z00.00 CPT Codes Advance Care Planning - Time spent: 1-15 minutes, on File ([id number]) Additional Codes CLIFFORD-7 Assessment Billing - CLIFFORD-7 Assessment Tool: CLIFFORD-7 Assessment 50482 ([id number]) Advance Care Planning Forms completed: Health Care Proxy (form filled out today and in scan copy), MOLST (form filled out, pt keeps original, copy in scan pile) and Living will (not filled out, highly encouraged pt get this done (HCP in room today, reported understanding this as well)) Time spent: 1-15 minutes, on File Actual minutes spent: 15
== END 2023-10-18 14:12 | disposition home or self-care (01) ==
PROVIDERS: PCP Nurse Practitioner Family; Visit Provider Nurse Practitioner Family
DX: Z00.00 Encounter for general adult medical examination without abnormal findings (principal)
CPT/HCPCS: 1123F; G0439

== ENCOUNTER 2023-12-20 10:21 | Outpatient (REF) | payer OTHER, MEDICAID, SELFPAY ==
--- NOTE | ~2023-12-20 | MM_ITS ---
EXAMINATION: MM SCREENING DIGITAL BREAST TOMOSYNTHESIS, BILATERAL CLINICAL INFORMATION: Screening. Asymptomatic. COMPARISON: Mammography: 03/12/2022, 03/06/2021, and 05/25/2016 ([facility]). TECHNIQUE: Digital breast tomosynthesis is performed in both the craniocaudal and mediolateral oblique views along with computer-aided detection (CAD). Synthesized 2D images are generated from the tomosynthesis. FINDINGS: There are scattered areas of fibroglandular density (ACR BI-RADS breast composition Category b). There are calcified oil cysts in both breasts. There are no suspicious masses, suspicious grouped calcifications, or areas of architectural distortion in either breast. The parenchymal pattern is stable from prior exams. No skin or axillary abnormalities. MM/MM tomosynthesis screening BI IMPRESSION: No mammographic evidence of malignancy. ASSESSMENT: BI-RADS BI-RADS 2 - Benign Findings RECOMMENDATION: Routine annual mammography screening. 1 year F/U This examination should not preclude the clinical evaluation of a suspicious palpable abnormality. This patient's information was entered into a reminder system with a target due date for their next mammogram.
== END 2023-12-20 10:22 | disposition home or self-care (01) ==
LOC: HO.MAMMO 10:21
PROVIDERS: PCP Nurse Practitioner Family; Visit Provider Nurse Practitioner Family
DX: Z12.31 Encounter for screening mammogram for malignant neoplasm of breast (principal)
CPT/HCPCS: 77063; 77067

== ENCOUNTER → 2023-12-20 10:30 | Outpatient (BNV) | payer OTHER, MEDICAID, SELFPAY | PROVIDERS: PCP Nurse Practitioner Family; Visit Provider Radiology Diagnostic Radiology | DX: Z12.31 Encounter for screening mammogram for malignant neoplasm of breast (principal) | CPT/HCPCS: 77063; 77067 ==

== ENCOUNTER 2024-04-01 09:45 | Outpatient (AMB) | payer OTHER, MEDICAID, SELFPAY ==
--- NOTE | 2024-04-01 10:11 | MHC.PC.OV ---
Vital Signs 04/01/24 10:13 Height 4 ft 9 in Weight 123 lb BMI 26.6 BP 110/74 Blood Pressure Location Rt brachial Position Sitting Pulse 56 Pulse Source Pulse Oximeter Pulse Oximetry (%) 98 Oxygen Delivery Method Room Air Intake Visit Reasons: 6M F/U Intake Note: Patient here for HTN f/u Allergies procaine [From Novocain] Allergy (Unknown, Verified 04/01/24 10:14) unknown milk [MILK] Adverse Reaction (Unknown, Verified 04/01/24 10:14) STOMACH UPSET SEASONAL ALLERGIES Allergy (Unknown, Uncoded 04/01/24 10:14) SINUS PROBLEMS From Novocain Adverse Reaction (Mild, Uncoded 04/01/24 10:14) PANIC ATTACK Tobacco use date assessed: 04/01/24 Fall risk assessment: No Falls in past year Last assessed Fall Risk: 04/01/24 Dental Screening Dental Screen Date: 04/01/24 Did you have a dental visit in the last 12 months?: No Did you have a dental problem in the last 6 months where you did not have access to dental care?: No Was dental information given to patient?: Patient has dentist HPI 6M F/U HPI Details HTN: Blood pressure is stable, managed with amlodipine 10mg and propranolol 20mg bid. Denies chest pain, shortness of breath, headache, dizziness, and blurred vision. Pt is following up with urology due to kidney stones. Anxiety: Pt is no longer seeing her therapist, she does not believe she needs one. Denies any SI and HI. [facility] Medical History Osteoporosis Surgical History S/P ureteral stent placement S/P foot surgery, left Family History Father No problems noted. Mother HTN (hypertension) Stroke Sister No problems noted. Daughter No problems noted. Social History Housing: Apartment Alcohol intake: former Patient Tobacco Use Status: Former Tobacco user Cigarettes Per Day: 2 Years Smoked: 10 years ago Packs per year/per ci.00 e-Cigarette/Vaping Use: Never Used Second Hand Smoke Exposure: No Current occupational status: retired Cognitive needs: No Hearing needs: No Vision needs: No Questionnaire PHQ-9 Over the last 2 weeks, how often have you been bothered by any of the following problems? 1. Little interest or pleasure in doing things: not at all 2. Feeling down, depressed, or hopeless: not at all 3. Trouble falling or staying asleep, or sleeping too much: several days 4. Feeling tired or having little energy: not at all 5. Poor appetite or overeating: not at all 6. Feeling bad about yourself - or that you are a failure or have let yourself or your family down: not at all 7. Trouble concentrating on things, such as reading the newspaper or watching television: not at all 8. Moving or speaking so slowly that other people could have noticed. Or the opposite - being so fidgety or restless that you have been moving around a lot more than usual: not at all 9. Thoughts that you would be better off or of hurting yourself in some way: not at all Total score: 1 Depression Screening Interpretation: Negative Depression Screening Done: Yes 99848 - PHQ-9 Billing: Yes Source: Developed by Drs. Bill Lizama, Yun Belcher, Xander Villalpando and colleagues, with an educational fermin from [employer]. Thrive Questionnaire Date Thrive assessed: 10/18/23 I am a: Patient What is your living situation today?: I have a steady place to live Within the past 12 months, did the food you bought not last and you didn't have the money to get more?: Never true Within the past 12 months, did you worry whether your food would run out before you got money to buy more?: Never true Do you have trouble paying for medicines?: No Do you have trouble getting transportation to medical appointments?: No Do you have trouble paying your heating and electricity bill?: No Do you have trouble taking care of your child, family member or friend?: No Do you have trouble with day-to-day activities such as bathing, preparing meals, shopping, managing finances, etc.?: No Are you currently unemployed and looking for a job?: No Are you interested in more education?: No Please select the resources that you would like help with: Housing/Fpc Currently or been in a relationship where the following occur: No concerns reported THRIVE Score: 0 AUDIT C Alcohol Use Questionnaire (AUDIT-C) 1. How often do you have a drink containing alcohol?: Never Total Score: 0 Score Reviewed/Action Taken: No CLIFFORD-7 AMB Questionnaire CLIFFORD-7 Date CLIFFORD - 7 assessed: 04/01/24 Feeling nervous, anxious, or on edge: 0 = Not at all Not being able to stop or control worryin = Not at all Worrying too much about different things: 0 = Not at all Trouble relaxin = Not at all Being so restless that it is hard to sit still: 0 = Not at all Becoming easily annoyed or irritable: 0 = Not at all Feeling afraid as if something awful might happen: 0 = Not at all Total CLIFFORD-7 score (0-4 normal; 5-9 mild; 10-14 moderate; 15-21 severe): 0 Source: Developed by Drs. Bill Lizama, Yun Belcher, Xander Villalpando and colleagues, with an educational fermin from [employer]. CLIFFORD-7 Assessment Billing CLIFFORD-7 Assessment Tool: CLIFFORD-7 Assessment 04093 Review of Systems Const Reports as per HPI Physical exam (Primary Care) Vital Signs: Last Vital Signs Pulse 56 04/01/24 10:13 BP 110/74 04/01/24 10:13 Pulse Ox 98 04/01/24 10:13 Oxygen Delivery Method Room Air 04/01/24 10:13 BMI result Body Mass Index 26.6 Tobacco/Smoking Status: Tobacco use Status Tobacco use date assessed 04/01/24 04/01/24 10:18 Patient Tobacco Use Status Former Tobacco user 04/01/24 10:18 e-Cigarette/Vaping Use Never Used 04/01/24 10:13 PHQ-9: PHQ-9 Score PHQ-9: Total score 1 04/01/24 10:28 Depression Screening Interpretation: Negative Thrive Assessment: Date of Thrive Assessment Date Thrive assessed 10/18/23 04/01/24 10:13 Currently or been in a relationship where the following occur: No concerns reported Const General: cooperative Orientation/consciousness: patient oriented x3 Resp Other: lungs fairly clear Effort & Inspection: normal respiratory effort Cardio Rate: regular rate Rhythm: regular rhythm Heart sounds: S1 normal heart sound present and S2 normal heart sound present Neuro General: patient oriented x3 Extrem Right lower extremity: no edema Left lower extremity: no edema Psych Appearance: grossly normal Mental Status: mental status grossly normal Speech and movement: Normal speech and movement present Affect: normal affect Attitude: cooperative Thought process: Normal thought process present Thought content: Normal thought content present Insight: Good insight present (Psych) Judgement: Good judgement present (Psych) Assessment and Plan Assessment & Plan (1) HTN (hypertension): Code(s): I10 - Essential (primary) hypertension Plan: Stable (2) Anxiety: Code(s): F41.9 - Anxiety disorder, unspecified Plan: Doing well (3) Vitamin D deficiency: Code(s): E55.9 - Vitamin D deficiency, unspecified Plan: lab ordered Plan The patient agreed to the use of a medical transcriptionist for this encounter. Scribed for JESSE Mckeon by Shasha Castillo medical transcriptionist, on 04/01/2024 at 10:25 EST. Orders: Orders Comprehensive [place]. Panel Fast Today I10 - Essential (primary) hypertension TSH reflex Free T4 Today I10 - Essential (primary) hypertension Lipid Panel Today I10 - Essential (primary) hypertension Complete Blood Count Auto Diff Today I10 - Essential (primary) hypertension UA CC w/rflx Micro + Cult Today I10 - Essential (primary) hypertension Vitamin D 25-OH Total Today E55.9 - Vitamin D deficiency, unspecified, I10 - Essential (primary) hypertension Coding Level of Care Code Est Pt Level 3 (88023) Diagnoses HTN (hypertension) I10 Anxiety F41.9 Vitamin D deficiency E55.9 Additional Codes CLIFFORD-7 Assessment Billing - CLIFFORD-7 Assessment Tool: CLIFFORD-7 Assessment 19407 ([id number])
[2024-04-01 10:13] VITALS: BP 110/74; PULSE 56; O2SAT 98; BMI 26.6
== END 2024-04-01 10:40 | disposition home or self-care (01) ==
PROVIDERS: PCP Nurse Practitioner Family; Visit Provider Nurse Practitioner Family
DX: I10 Essential (primary) hypertension (principal); F41.9 Anxiety disorder, unspecified; E55.9 Vitamin D deficiency, unspecified
CPT/HCPCS: 99213

== ENCOUNTER 2024-05-04 09:13 | Outpatient (AMB) | payer OTHER, MEDICAID, SELFPAY ==
--- OUTSIDE RECORDS SUMMARY | 2024-05-04 09:15 | XMS_ITS | Continuity of Care Document ---
Author Organization [facility] [place] Address [address] [facility] [place] [address]- Care Team Providers Care Artist Relationship Manager Name Role Phone Matt SOTO, Momo Rudolph Primary Care Physician Encounter 02/28/24 - 03/06/24 [facility] [address], [facility] [address] [place] [address]- Attending Physician: Suzy Markham Admitting Physician: Suzy Markham Referring Physician: Suzy Markham Allergies, Adverse Reactions, Alerts Substance Reaction Severity [...] 0 Refills, Maintenance, 07/09/21 13:40:00 EST, Suppository, [facility]/pharmacy #[id number], Partial fill upon patient request [...] Exam Date Time Procedure Performing Provider Status 02/28/24 1:43 PM US Renal Bladder Nathen Perez; Aut h (Verified) Notes: (US Renal Bladder) Reason For Exam: Calculus of ureter RESULT: US Renal Bladder US Renal Bladder Reason: Calculus of ureter COMPARISON: CT, 11/20/2023. FINDINGS: Right kidney: 9.1 cm in length. No hydronephrosis. Normal parenchymal thickness and echotexture. Nostones. No suspicious mass. 1.1 cm upper pole cyst is noted. 8mm mid cortical renal cyst noted. Large exophytic 4.4 cm lower pole cyst noted with thin internal septations. Left kidney: 10 cm in length. Left upper pole caliectasis without hydronephrosis. Normal parenchymal thickness and echotexture. 2 mm nonobstructing lower pole calculus noted. No suspicious mass. Urinary bladder: Incompletely distended, but no evidence of stone, mass or debris. Bilateral ureteral jets are identified on color Doppler imaging suggesting ureterovesicular junction patency. Prevoid volume is 89 cc. IMPRESSION: 1. Left upper pole caliectasis without hydronephrosis. 2. 2 mm nonobstructing left lower pole calculus. 3. Right renal cysts measuring up to 4.4 cm in the lower pole with internal septations. 4. Under distended bladder. WSN: [id number] Ordering Physician: Suzy Cason Dictated By: Tisha Heredia MD Dictated Date/Time: 02/28/24 1:51 pm Reviewed By: Tisha Heredia MD Signed By: Tisha Heredia MD Signed Date/Time: 02/28/24 1:51 pm Transcribed By: LESLYE Transcribed Date/Time: 02/28/24 1:48 pm Social History Social History Type Response Smoking Status Current every day sm oker; Tobacco user in household: Yes; Type: Cigarettes entered on: 07/11/17 Sex Patient Care team information Care Team Personnel Name: Momo Gutierrez NP Position: Reference Physician Member Role: PCP Address: Address: [address] [place] [phone]- Care Team Related Persons Name: MAXIME TURNER Address: [place] [address]
[2024-05-04 09:26] VITALS: BP 120/80; PULSE 65; TEMP 36.4; O2SAT 95; BMI 26.4
--- NOTE | 2024-05-04 09:26 | AM.OFFWIN_ITS ---
Intake Vital Signs 05/04/24 09:26 Height 4 ft 9 in Weight 122 lb BMI 26.4 BP 120/80 Blood Pressure Location Lt brachial Position Sitting Pulse 65 Pulse Source Pulse Oximeter Temp 97.6 F Temp Source Oral Pulse Oximetry (%) 95 Oxygen Delivery Method Room Air Intake Visit Reasons: EP Bilateral lower leg swelling/pain Intake Note: Pt is here tofay c/o bilateral lower leg swelling and painful Patient Tobacco Use Status: Former Tobacco user Allergies procaine [From Novocain] Allergy (Unknown, Verified 05/04/24 09:57) unknown milk [MILK] Adverse Reaction (Unknown, Verified 05/04/24 09:57) STOMACH UPSET SEASONAL ALLERGIES Allergy (Unknown, Uncoded 05/04/24 09:31) SINUS PROBLEMS From Novocain Adverse Reaction (Mild, Uncoded 05/04/24 09:31) PANIC ATTACK Medication List - Last Reconciled 05/04/24 by Janina Mckeon, [employer]- amlodipine 10 mg PO DAILY blood pressure test kit-medium As directed cetirizine 10 mg PO DAILY 90 days cholecalciferol (vitamin D3) 50 mcg PO DAILY 90 days clonidine HCl 0.2 mg PO DAILY docusate sodium (Colace) 100 mg PO DAILY propranolol 20 mg PO BID HPI HPI Comments History of Present Illness Details Pleasant 79-year-old female here today with her daughter with chief complaints of bilateral lower extremity that occurred on 04/21/2024. Reports that she was sitting doing crafts on the floor, sitting style, for 12 hours. After that she ate pizza. After that she developed swelling in both of her legs. Since this time she has elevated her legs, reduced her sodium and has not been sitting for prolonged periods. Her edema is now improved. She denies any shortness of breath, chest pain. Denies any history of heart failure. Ove rall she feels fine just looking for reassurance. She denies any recent surgery, she is a nonsmoker. Exam Awake alert oriented, no acute distress accompanied by her daughter No JVD Regular rate and rhythm Lung sounds clear to auscultation bilat No edema bilateral lower extremities Positive pedal pulses bilateral Plan Reassurance provided. I do not think that she is in heart failure. I do not think that she has a DVT. Her symptoms have completely resolved without any medical intervention. Her symptoms started after prolonged sitting. I have advised her to avoid prolonged sitting. Advised her to get up and move every 30 minutes. Advised her to avoid any constriction around her waist or hips. Continue to reduce her sodium. If she develops any additional edema in her lower extremities, chest pain, shortness of breath at that time I do recommend that she follow up with her primary care provider. This note is constructed using voice recognition software. While every effort has been made to ensure accuracy in blanchard grinder operator, still errors may have been included Sometimes, these errors may affect the content or meaning of the given sentence . Total time spent caring for the patient today was 30 minutes. This includes time spent before the visit reviewing the chart, time spent during the visit, and time spent after the visit on documentation PFSH Medical History Osteoporosis Surgical History S/P ureteral stent placement S/P foot surgery, left Family History Father No problems noted. Mother HTN (hypertension) Stroke Sister No problems noted. Daughter No problems noted. Social History Housing: Apartment Alcohol intake: former Patient Tobacco Use Status: Former Tobacco user Cigarettes Per Day: 2 Years Smoked: 10 years ago e-Cigarette/Vaping Use: Never Used Second Hand Smoke Exposure: No Current occupational status: retired Cognitive needs: No Hearing needs: No Vision needs: No Physical Exam Vital Signs: Last Vital Signs Temp 97.6 F 05/04/24 09:26 Pulse 65 05/04/24 09:26 BP 120/80 05/04/24 09:26 Pulse Ox 95 05/04/24 09:26 Oxygen Delivery Method Room Air 05/04/24 09:26 BMI result Body Mass Index 26.4 Assessment & Plan Assessment & Plan (1) Edema of both lower extremities: Code(s): R60.0 - Localized edema Plan: . Coding Level of Care Code Est Pt Level 4 (25022) Diagnoses Edema of both lower extremities R60.0
== END 2024-05-04 10:17 | disposition home or self-care (01) ==
PROVIDERS: PCP Nurse Practitioner Family; Visit Provider Nurse Practitioner Family
DX: R60.0 Localized edema (principal)
CPT/HCPCS: 99051; 99214

== ENCOUNTER 2024-10-23 14:27 | Outpatient (REF) | payer OTHER, MEDICAID, SELFPAY ==
--- NOTE | ~2024-10-23 | XR_ITS ---
EXAMINATION: XR CHEST CLINICAL INFORMATION: R60.0 - Localized edema COMPARISON: None available. TECHNIQUE: 2 views of the chest were obtained. FINDINGS: The cardiac, hilar, and mediastinal contours are normal. Mild aortic mural calcification. The lungs are diffusely hyperaerated, with flattened hemidiaphragms, however clear bilaterally. There is no pneumothorax or pleural effusion. There is no focal osseous or soft tissue abnormality. XR/XR chest 2V IMPRESSION: COPD. No active superimposed disease. Electronically signed by: Henry Chaparro MD 10/24/2024 08:14 AM [facility]
== END 2024-10-23 14:28 | disposition home or self-care (01) ==
LOC: HO.HMGCX 14:27
PROVIDERS: PCP Nurse Practitioner Family; Visit Provider Nurse Practitioner Family
DX: R60.0 Localized edema (principal); R06.02 Shortness of breath
CPT/HCPCS: 71046

== ENCOUNTER 2024-10-23 14:27 | Outpatient (AMB) | payer OTHER, MEDICAID, SELFPAY ==
[2024-10-23 14:30] VITALS: BP 114/72; PULSE 76; RESP 20; TEMP 36.7; O2SAT 95; BMI 27.5
--- NOTE | 2024-10-23 14:30 | A.OFFVIS_ITS ---
Intake Vital Signs 10/23/24 14:30 Height 4 ft 9 in Weight 127 lb BMI 27.5 BP 114/72 Blood Pressure Location Rt brachial Position Sitting Respiration 20 Pulse 76 Pulse Source Pulse Oximeter Temp 98.1 F Temp Source Oral Pulse Oximetry (%) 95 Oxygen Delivery Method Room Air Intake Visit Reasons: SWV G0439 Allergies procaine [From Novocain] Allergy (Unknown, Verified 10/23/24 14:34) unknown milk [MILK] Adverse Reaction (Unknown, Verified 10/23/24 14:34) STOMACH UPSET SEASONAL ALLERGIES Allergy (Unknown, Uncoded 10/23/24 14:34) SINUS PROBLEMS From Novocain Adverse Reaction (Mild, Uncoded 10/23/24 14:34) PANIC ATTACK Medication List - Last Reconciled 10/23/24 by PEPE Alvarado- amlodipine 10 mg PO DAILY blood pressure test kit-medium As directed cetirizine 10 mg PO DAILY 90 days cholecalciferol (vitamin D3) 50 mcg PO DAILY 90 days clonidine HCl 0.2 mg PO DAILY docusate sodium (Colace) 100 mg PO DAILY propranolol 20 mg PO BID HPI SWV G0439 HPI Details AWV: CCC in scan pile, PPP in scan pile HPI Comments History of Present Illness Details Chief Complaint The patient presents with her daughter's concern about increased shortness of breath and edema in the legs. History of Present Illness The patient is a 79-year-old female presenting with her HCP (daughter) who reported she noticed her mother with increased shortness of breath with exertion and edema in lower extremities. She has a longstanding history of smoking years ago. The daughter has observed a recent exacerbation in respiratory symptoms alongside trace edema. Limited by age, she is ineligible for low-dose computed tomography for lung cancer screening. The patient's symptoms warrant further investigation. A workup including chest imaging and laboratory testing for potential heart failure and thyroid d ysfunction is deemed crucial. Exploration of these avenues is planed to provide clarity on her condition. Social History - History of tobacco use Health Maintenance Review of Systems - Respiratory: Reports increased shortne ss of breath - Cardiovascular: Denies chest pain, diz ziness, and passing out - Neurologic: Denies headaches and blurr ed vision Physical Exam General: Cooperative, healthy appearing, comfortable, no acute distress and well developed Orientation: Patient oriented x3 Head: Normal to inspection Ears: Hearing grossly normal bilaterally Nose: Normal external nose present Face and sinus: Normal facial exam Eyes: Appearance normal, both eyes and all related structures Neck: Normal visual inspection and Yes full ROM Respiratory: Normal respiratory effort and able to speak in complete sentences. Clear to auscultation bilaterally Cardiovascular: Regular rate and rhythm. Normal S1 and S2 GI: Normal to inspection. Soft to palpation and nontender Neuro: Patient oriented x3 Extremities: Trace edema in the bilateral extremities noted Results Plan The patient is scheduled for a thorough evaluation to address her symptoms of shortness of breath and edema. A chest X-ray will confirm any pulmonary changes, and a BNP assay checks for heart failure. Additionally, CMP, CBC, and thyroid function assessments will extend my examination of her systemic health. I will also arrange an echocardiogram to evaluate cardiac function accurately. Prompt testing is advised. Discussion Notes I discussed with the patient and her daughter the necessity of evaluating the increase in shortness of breath and observed edema. I explained the rationale behind each test, outlining that the chest X-ray and BNP assay will delineate pulmonary and cardiac contributors. The addition of metabolic, blood, and thyroid panels will help in clarifying overall health status, alongside an echocardiogram to explore cardiac function. I emphasized the importance of timely lab completion to aid in management decisions. Patient Instructions - Complete the ordered laboratory tests and imaging studies as soon as possible. - Monitor for any exacerbation of sympto ms, such as increased shortness of breath or swelling. - Report any new symptoms, particularly chest pain or dizziness, immediately. - Schedule a follow-up visit after compl eting all ordered tests and discuss the results. [facility] Medical History Osteoporosis Surgical History S/P ureteral stent placement S/P foot surgery, left Family History Father No problems noted. Mother HTN (hypertension) Stroke Sister No problems noted. Daughter No problems noted. Social History Housing: Apartment Alcohol intake: former Patient Tobacco Use Status: Former Tobacco user Cigarettes Per Day: 2 Years Smoked: 10 years ago e-Cigarette/Vaping Use: Never Used Second Hand Smoke Exposure: No Current occupational status: retired Cognitive needs: No Hearing needs: No Vision needs: No Questionnaire Medicare Wellness Checkup [age] What gender do you identify with?: female During the past 4 weeks, how much have you been bothered by emotional problems such as feeling anxious, depressed, irritable, sad or downhearted, and blue?: moderately During the past 4 weeks, has your physical & emotional health limited your social activities with family, friends, neighbors, or groups?: not at all During the past 4 weeks, how much bodily pain have you generally had?: moderate pain During the past 4 weeks, was someone available to help you if you needed & wanted help?: yes, as much as I wanted During the past 4 weeks, what was the hardest physical activity you could do for at least 2 minutes?: moderate Can you get to places out of walking distance without help? (For eg., can you travel alone on buses, taxis or drive your car?): No Can you go shopping for groceries or clothes without someone's help?: No Can you prepare your own meals?: Yes Can you do your housework without help?: No Because of any health problems, do you need the help of another person with your personal care needs such as eating, bathing, dressing or getting around the house?: No Can you handle your own money without help?: Yes During the past 4 weeks, how would you rate your health in general?: very good During the past 4 weeks how have things been going for you?: very well; could hardly better Are you having difficulties driving your car?: not applicable, I don't use a car Do you always fasten your seat belt when you are in a car?: yes, usually During past 4 weeks, have you been bothered by the following: never: Falling or dizzy when standing up, Sexual problems?, Trouble eating well?, Teeth or denture problems?, Problems using the telephone? and Tiredness or fatigue? Have you fallen 2 or more times in the past year?: No Are you afraid of falling?: Yes Are you a smoker?: yes, and I might quit During the past 4 weeks, how many drinks of wine, beer, or other alcoholic beverages did you have?: no alcohol at all Do you exercise for about 20 minutes 3 or more times a week?: yes, some of the time Have you been given information to help with the following?: yes: Hazards in your house that might hurt you? and yes: Keeping track of your medications? How often do you have trouble taking medicines the way you have been told to take them?: I always take medicine as prescribed How confident are you that you can control & manage most of your health problems?: somewhat confident What is your race?: White Mini Mental State Exam (MMSE) Orientation What is the (year) (season) (date) (day) (month)?: year, season, date, day and month Where are we (state) (county) (town or city) (hospital) (floor)?: state, county, town or city, hospital/clinic and floor Registration Name of 3 unrelated objects clearly and slowly, then ask patient to repeat all 3 of them. (1st repeat determines score. Make sure they can repeat all three): object 1, object 2 and object 3 Attention & Calculation (CHOOSE ONE) Spell WORLD backwards (DLROW): 5 letters Recall Ask patient to repeat the 3 items from question #3.: object 1, object 2 and object 3 Language Show patient a wristwatch & ask what it is. Repeat for pencil.: watch and pencil Ask the patient to repeat the phrase 'No ifs, ands, or buts' after you.: correct Ask the patient to 'take a piece of paper with their right hand' 'fold paper in half' 'place paper on floor': take paper in right hand, fold paper in half and place paper on floor Print the sentence 'CLOSE YOUR EYES' on a piece. If patient actually closes eyes then score.: followed written direction Give patient a blank piece of paper & ask to write a sentence. Score if it contains a noun & verb.: sentence contains subject and verb Ask patient to copy figure of intersecting pentagons exactly. Score if all 10 angles & 2 intersects are included.: all 10 angles present & 2 are intersected Score Score: 30 Activity of Daily Living Bathing - sponge bath, tub bath or shower: receives no assistance (gets in/out by self, if usual bathing means Dressing - getting clothes from closets & drawers, including inner/outer garments & fasteners.: gets clothes & gets completely dressed without help Toileting - going to the 'toilet room' for urine/bowel elimination & cleaning self/arranging clothes: goes to toilet room, cleans self, arranges clothes without help Transfer: moves in & out of bed and chair without help (may use support object) Continence: controls urination/bowel movements completely by self Feeding: feeds self without help Total Score: 0 Information obtained from: patient Using telephone: independent Traveling: independent Shopping: independent Preparing meals: independent Housework: independent Taking medicine: independent Managing money: independent PHQ-9 Over the last 2 weeks, how often have you been bothered by any of the following problems? [id number] - PHQ-9 Billing: Patient declined-do not bill Source: Developed by Drs. Bill Lizama, Yun Belcher, Xander Villalpando and colleagues, with an educational fermin from [facility]. Physical Exam Vital Signs: Last Vital Signs Temp 98.1 F 10/23/24 14:30 Pulse 76 10/23/24 14:30 Resp 20 10/23/24 14:30 BP 114/72 10/23/24 14:30 Pulse Ox 95 10/23/24 14:30 Oxygen Delivery Method Room Air 10/23/24 14:30 BMI result Body Mass Index 27.5 Neuro Other: neg rhomberg, able to tandem walk, able to stand from sitting position, passed whisper test Assessment & Plan Assessment & Plan (1) Post-menopausal: Code(s): Z78.0 - Asymptomatic menopausal state (2) Osteoporosis: Code(s): M81.0 - Age-related osteoporosis without current pathological fracture (3) Encounter for annual wellness visit (AWV) in Medicare patient: Code(s): Z00.00 - Encounter for general adult medical examination without abnormal findings (4) Edema of both lower extremities: Code(s): R60.0 - Localized edema (5) SOB (shortness of breath) on exertion: Code(s): R06.02 - Shortness of breath Plan . Orders: Orders XR DEXA axial skeleton 6 Months M81.0 - Age-related osteoporosis without current pathological fracture, Z78.0 - Asymptomatic menopausal state B Type Natriuretic Peptide Today R60.0 - Localized edema CA echo transthoracic complete Today R06.02 - Shortness of breath XR chest 2V Today R06.02 - Shortness of breath, R60.0 - Localized edema Coding Level of Care Code Medicare Subsequent (G0439) Est Pt Level 3 (43430) Diagnoses Post-menopausal Z78.0 Osteoporosis M81.0 Encounter for annual wellness visit (AWV) in Medicare patient Z00.00 Edema of both lower extremities R60.0 SOB (shortness of breath) on exertion R06.02 Advance Care Planning Forms completed: Health Care Proxy (done), MOLST (done) and Living will (not done, encouraged to do so)
== END 2024-10-23 15:25 | disposition home or self-care (01) ==
PROVIDERS: PCP Nurse Practitioner Family; Visit Provider Nurse Practitioner Family
DX: Z00.00 Encounter for general adult medical examination without abnormal findings (principal); M81.0 Age-related osteoporosis without current pathological fracture; Z78.0 Asymptomatic menopausal state; R60.0 Localized edema; R06.02 Shortness of breath

== ENCOUNTER → 2024-10-23 15:31 | Outpatient (BNV) | payer OTHER, MEDICAID, SELFPAY | PROVIDERS: PCP Nurse Practitioner Family; Visit Provider Radiology Diagnostic Radiology | DX: J44.9 Chronic obstructive pulmonary disease, unspecified (principal) | CPT/HCPCS: 71046 ==

== ENCOUNTER 2024-11-04 10:24 | Outpatient (REF) | payer MEDICARE, MEDICAID, SELFPAY ==
[2024-11-04 13:07] LABS: Appearance Urine Clear; Color Urine Yellow; Glucose Urine UA Negative (Negative); Leukocyte Esterase Urine Small (1+) (Negative); Nitrite Urine Negative (Negative); UMIC TRIGGER UACC YES; Urine Blood Negative (Negative); Urine Ketones Negative (Negative); Urine Protein Negative (Neg-Trace)
[2024-11-04 13:14] LABS: MANUAL DIFF FLAG NO
[2024-11-04 13:25] LABS: B Type Natriuretic Peptide 49 pg/mL (<100)
[2024-11-04 13:34] LABS: Bacteria Urine None Seen (None Seen); Calcium Oxalate Crystals Urine Present; Hyaline Casts Urine 0-2 /LPF (0-2); RBC Urine 0-2 /HPF (0-2); UACC Culture Trigger YES; WBC Urine 0-5 /HPF (0-5)
[2024-11-04 13:36] LABS: Basophils Absolute Auto 0.1 X10*3/uL (0.0-0.2); Basophils Percent Auto 0.7 % (0-2); Eosinophils Absolute Auto 0.2 X10*3/uL (0.0-0.4); Eosinophils Percent Auto 2.4 % (0-4); Hematocrit 45.4 % (37.0-47.0); Hemoglobin 15.7 g/dl (12.0-16.0); Imm Gran Abs Auto 0.02 X10*3/uL (0.00-0.03); Imm Gran Pct Auto 0.3 % (0.0-0.4); Lymphocytes Absolute Auto 2.6 X10*3/uL (1.2-4.9); Lymphocytes Percent Auto 34.6 % (20-40); Mean Corpuscular HGB Conc 34.6 g/dl (31.0-35.0); Mean Corpuscular Hemoglobin 30.3 pg (27.0-33.0); Mean Corpuscular Volume 87.6 fL (80.0-98.0); Mean Platelet Volume 9.9 fL (9.4-12.3); Monocytes Absolute Auto 0.7 X10*3/uL (0.1-1.2); Monocytes Percent Auto 9.3 % (2-11); Neutrophils Percent Auto 52.7 % (45-73); Platelet Count 287 X10*3/uL (160-400); Red Blood Count 5.18 X10*6/uL (4.20-5.50); Red Cell Distribution Width 11.8 % (11.0-16.0); White Blood Count 7.6 X10*3/uL (4.8-10.8)
[2024-11-04 14:07] LABS: Alanine Aminotransferase 19 U/L (0-31); Albumin Level 4.3 g/dL (3.5-5.0); Alkaline Phosphatase 119 U/L (39-117); Anion Gap 11 (12-20); Aspartate Amino Transferase 34 U/L (5-31); Bilirubin Total 0.4 mg/dL (0.0-1.0); Blood Urea Nitrogen 16 mg/dL (9-16); Calcium 9.7 mg/dL (8.4-10.2); Carbon Dioxide 28 mmol/L (22-29); Chloride 107 mmol/L (96-108); Cholesterol 195 mg/dL (<200); Estimated Glomerular Filt Rate > 60; Glucose Fasting 106 mg/dL (60-99); HDL Cholesterol 41 mg/dL (>40); LDL Cholesterol Calculated 129 mg/dL (<100); Potassium 4.4 mmol/L (3.3-5.1); Sodium 142 mmol/L (135-145); TSH reflex Free T4 1.25 uIU/mL (0.32-4.0); Total Protein 8.5 g/dL (6.5-8.0); Triglycerides 129 mg/dL (<150); Vitamin D 25-OH Total 56.6 ng/mL (>30)
== END 2024-11-04 10:25 | disposition home or self-care (01) ==
LOC: HO.HMGCLDS 10:24
PROVIDERS: PCP Nurse Practitioner Family; Visit Provider Nurse Practitioner Family
DX: R60.0 Localized edema (principal); E55.9 Vitamin D deficiency, unspecified; I10 Essential (primary) hypertension
CPT/HCPCS: 36415; 80053; 80061; 81001; 81003; 82306; 83880; 84443; 85025; 87086

== ENCOUNTER → 2024-11-20 12:17 | Outpatient (REF) | payer MEDICARE, MEDICAID, SELFPAY ==
--- NOTE | 2024-11-20 12:21 | CA_ITS ---
Transthoracic Echocardiogram Patient (Last, First, Middle): Isabel Caldera A Gender: Female Date of : 1945 Age: 79 Procedure Date: 11/20/2024 Procedure Type: Transthoracic Echocardiogram Location: OP Height: 144.78 cm Weight: 57.61 kg BSA: 1.48 m2 Heart Rate: bpm BP: 114 / 72 mmHg Visual Artist: KIMBERLEY Patel MD: Momo Gutierrez [facility] Mechanic Chief: Gerry Vasquez MD Symptoms: R06.02 - Shortness of breath Study Quality: Adequate ECG Rhythm: Sinus Conclusions: - 1. Normal LV ejection fraction of 60 65% with grade 3 diastolic dysfunction 2. Mild mitral regurgitation 3. Upper limits of normal RV systolic pressure 4. No gross pericardial effus Findings Left Ventricle Normal left ventricular size, thickness, and systolic function. The visually estimated ejection fraction is between 60-65%. Spectral Doppler is indicative of a restrictive filling pattern. Elevated left atrial and left ventricular end-diastolic pressures. E/E prime ratio is >15, consistent with elevated filling pressures. Evidence suggests grade III (severe) diastolic dysfunction. Right Ventricle Normal right ventricular cavity size and systolic function. Atria The left atrium is normal in size. There is an interatrial septal aneurysm seen bowing to the right. There is no evidence of interatrial shunt. The right atrium is normal in size. Aortic Valve There is mild calcification of the aortic valve. There is no aortic valve stenosis. There is no aortic valve regurgitation. Mitral Valve There is mild anterior and posterior mitral leaflet thickening. There is mild mitral valve regurgitation. There is no mitral valve stenosis. Pulmonic Valve The pulmonic valve is likely normal. Tricuspid Valve There is mild tricuspid valve regurgitation. Normal right atrial pressure. There is no evidence of pulmonary hypertension. Great Vessels All visible segments of the aorta are normal in size. The pulmonary artery was not well visualized. There is no dilatation of the ascending aorta measuring 2.60 cm. Venous The inferior vena cava is normal in size. Pericardium/Pleural There is no evidence of pericardial effusion. Prior Study Comparison No prior study available for comparison. Measurements 2D Linear Measurements IVSd: 0.65 0.6-0.9/0.6-1.0 cm LVIDd: 4.69 3.9-5.3/4.2-5.9 cm LVIDd Index: 3.17 2.4-3.2/2.2-3.1 cm/m2 LVIDs: 2.91 2.0-3.6 cm LVPWd: 0.69 0.7-1.1 cm Ao Root: 2.50 2.1-3.5 cm LA Diam: 3.50 2.7-3.8/3.0-4.0 cm LAIDs Index: 2.36 1.5-2.3 cm/m2 LV Mass: 121.08 67-162/88-224 g LV Mass Index: 81.81 43-95/49-115 g/m2 LVOT Diam: 1.90 3.0+(-)1.3 cm 2D Systolic Function EF 4C: 60.40 >55% EF 2C: 61.30 >55% EF BiP: 61.10 >55% Mitral Valve MV Pk E: 0.98 MV PK A: 0.65 MV Decel Time: 346.00 E/A: 1.50 E'Lateral: 6.31 E'Medial: 4.24 E/E' Med: 23.00 E/E' Lat: 15.50 PHT: 101.00 MVA PHT: 2.18 Decel Treutlen: 2.82 Aortic Valve AoV Pk Chad: 1.51 AoV Mn Chad: 1.06 AoV VTI: 0.35 AoV Pk Grad: 9.00 Aov Mn Grad: 5.00 SOTERO Cont.VTI: 1.87 LVOT LVOT Pk Chad: 1.00 LVOT Mn Chad: 0.69 LVOT VTI: 0.23 LVOT Pk Grad: 4.00 LVOT Mn Grad: 2.00 LVOT Diam: 1.90 LVOT Area: 2.84 Diastolic Function MV Pk E: 0.98 MV Pk A: 0.65 E/A: 1.50 E'Medial: 4.24 E/E' Med: 23.00 E' Laterial: 6.31 E/E' Lat: 15.50 Right Ventricle TAPSE (mm): 17.00 Tricuspid Valve TR Pk Grad: 36.00 RVSP: 39.00 Great Vessels Aorta Ao Root-2D: 2.50 2.0-3.7 cm Ao Asc: 2.60 2.1-3.4 cm Ao Arch: 2.40 Updated in Other Vendor System with Status of Final Gerry Vasquez MD electronically signed on 11/20/2024 3:10:51 PM with status of Final
== END ==
LOC: HO.CARD 12:17
PROVIDERS: PCP Nurse Practitioner Family; Visit Provider Nurse Practitioner Family
DX: R06.02 Shortness of breath (principal)
CPT/HCPCS: 93306

== ENCOUNTER → 2024-11-20 12:21 | Outpatient (BNV) | payer MEDICARE, MEDICAID, SELFPAY | PROVIDERS: PCP Nurse Practitioner Family; Visit Provider Internal Medicine Cardiovascular Disease | DX: I35.1 Nonrheumatic aortic (valve) insufficiency (principal); I34.0 Nonrheumatic mitral (valve) insufficiency; I36.1 Nonrheumatic tricuspid (valve) insufficiency | CPT/HCPCS: 93306 ==

== ENCOUNTER 2024-11-27 12:15 | Outpatient (REF) | payer MEDICARE, MEDICAID, SELFPAY ==
[2024-11-27 13:14] LABS: MANUAL DIFF FLAG NO
[2024-11-27 13:34] LABS: Basophils Absolute Auto 0.1 X10*3/uL (0.0-0.2); Basophils Percent Auto 0.9 % (0-2); Eosinophils Absolute Auto 0.2 X10*3/uL (0.0-0.4); Eosinophils Percent Auto 2.6 % (0-4); Hematocrit 43.4 % (37.0-47.0); Imm Gran Abs Auto 0.01 X10*3/uL (0.00-0.03); Imm Gran Pct Auto 0.1 % (0.0-0.4); Lymphocytes Absolute Auto 2.4 X10*3/uL (1.2-4.9); Lymphocytes Percent Auto 34.9 % (20-40); Mean Corpuscular HGB Conc 34.6 g/dl (31.0-35.0); Mean Corpuscular Hemoglobin 30.4 pg (27.0-33.0); Mean Corpuscular Volume 87.9 fL (80.0-98.0); Mean Platelet Volume 9.3 fL (9.4-12.3); Monocytes Absolute Auto 0.7 X10*3/uL (0.1-1.2); Monocytes Percent Auto 10.1 % (2-11); Neutrophils Absolute Auto 3.5 x10*3/uL (2.0-8.3); Neutrophils Percent Auto 51.4 % (45-73); Platelet Count 282 X10*3/uL (160-400); Red Blood Count 4.94 X10*6/uL (4.20-5.50); Red Cell Distribution Width 11.9 % (11.0-16.0); White Blood Count 6.9 X10*3/uL (4.8-10.8)
[2024-11-27 14:02] LABS: Appearance Urine Clear; Color Urine Yellow; Glucose Urine UA Negative (Negative); Leukocyte Esterase Urine Negative (Negative); Nitrite Urine Negative (Negative); Specific Gravity - Urine 1.015 (1.005-1.025); Urine Blood Negative (Negative); Urine Ketones Negative (Negative); Urine Protein Negative (Neg-Trace)
[2024-11-27 14:20] LABS: Alanine Aminotransferase 21 U/L (0-31); Albumin Level 4.2 g/dL (3.5-5.0); Alkaline Phosphatase 112 U/L (39-117); Aspartate Amino Transferase 23 U/L (5-31); Bilirubin Direct 0.1 mg/dL (0.0-0.5); Bilirubin Total 0.4 mg/dL (0.0-1.0); Total Protein 7.7 g/dL (6.5-8.0)
[2024-11-27 14:36] LABS: HBS Num1 0.71 mIU/mL (0-7.99); HBc Num1 0.18 S/CO (0.00-0.79); HBsAGNum1 0.28 S/CO (0.00-0.99); Hepatitis A Antibody IgM 0.13 Index (0-0.79); Hepatitis B Core Antibody Nonreactive (Nonreactive); Hepatitis B Surface Antigen Negative (Negative); ~HepC Num1 12.85 S/CO (0.00-0.79); ~Hepatitis A Antibody IgM Nonreactive (Nonreactive); ~Hepatitis B Surface Antibody NONREACTIVE (Nonreactive); ~Hepatitis C Antibody Reactive (Nonreactive)
--- OUTSIDE RECORDS SUMMARY | 2024-11-27 14:47 | XMS_ITS | Encounter Summary ---
Author Organization [facility] Address [id number] [place] [id number] Care Team Providers Care Special Needs Tutor Name Role Phone Momo Gutierrez NP Primary Care Provider Encounter Details Date Type Department Care Team (Late st Contact Info) Description 11/26/2024 Telephone [facility] [address] [place] [phone] Physician, Pcp Unknown Social History Tobacco Use Types Packs/Day Years Used Date Smoking Tobacco: Never Assessed Comments Unknown Sex and Gender Information Value Date Recorded Sex Assigned at Not on file Legal Sex Female 8:44 PM EST Gender Identity Not on file Sexual Orientation Not on file documented as of this encounter Plan of Treatment Upcoming Encounters Date Type Department Care Team (Late st Contact Info) Description 12/16/2024 8:20 AM EDT Office Visit [facility] [address] [facility] [address] [place] [phone] Brenda Watt MD [address] [place] [address] documented as of this encounter Visit Diagnoses Not on filedocumented in this encounter Care Teams Special Needs Tutor Relationship Specialty Start Date End Date Momo Gutierrez NP [address] [place] [phone] PCP - General Family Medicine 11/26/24 documented as of this encounter
--- OUTSIDE RECORDS SUMMARY | 2024-11-27 14:47 | XMS_ITS | Clinical Summary ---
Author Organization [facility] Address [address] [place] [address] Phone Care Team Providers Care Reworker Name Role Phone Momo Gutierrez NP Primary Care Provider Encounters Date Type Department Care Team Description 11/26/[address] [place] [address] Physician, Pcp Unknown from Last 3 Months Social History Tobacco Use Types Packs/Day Years Used Date Smoking Tobacco: Never Assessed Comments Unknown Sex and Gender Information Value Date Recorded Sex Assigned at Not on file Legal Sex Female 8:44 PM EST Gender Identity Not on file Sexual Orientation Not on file Plan of Treatment Upcoming Encounters Date Type Department Care Team (Late st Contact Info) Description 12/16/2024 8:20 AM EDT Office Visit [facility] [address] [facility] [address] [place] [phone] Brenda Watt MD [address] [place] [address] Health Maintenance Due Date Last Done Comments DTaP,Tdap,and Td Vaccines (1 - Tdap) 1966 Pneumococcal Vaccine: 50+ Ye ars (1 of 1 - PCV) 1997 Zoster Vaccines (1 of 2) 1997 RSV Immunization Adult Patie nts (1 - 1-dose 75+ series) 2022 Depression Screening 09/22/2023 Falls Risk Assessment 09/22/2023 Hepatitis C Screening 09/22/2023 Medicare Annual Wellness Visit 09/22/2023 Osteoporosis Screening (Bone Density Screening) 09/22/2023 Social Influencers of Health Screening 09/22/2023 COVID-19 Vaccine (2023-2 5 season) 2024 Influenza Vaccine (Season Ended) 2025 HIB Vaccines Aged Out No longer eligi ble based on patient's age to complete this topic HPV Vaccines Aged Out No longer eligi ble based on patient's age to complete this topic Hepatitis A Vaccines Aged Out No long er eligible based on patient's age to complete this topic Hepatitis B Vaccines Aged Out No long er eligible based on patient's age to complete this topic IPV Vaccines Aged Out No longer eligi ble based on patient's age to complete this topic MMR Vaccines Aged Out No longer eligi ble based on patient's age to complete this topic Meningococcal ACWY Vaccine Aged Out N o longer eligible based on patient's age to complete this topic Meningococcal B Vacine Aged Out No lo nger eligible based on patient's age to complete this topic RSV Immunization Patients Un aakash 20 months Aged Out No longer eligible b ased on patient's age to complete this topic Varicella Vaccines Aged Out No longer eligible based on patient's age to complete this topic Insurance A[place]: [place] [address] [facility] MEDICARE ADVANTAGE on file [place] Care Teams Reworker Relationship Specialty Start Date End Date Momo Gutierrez NP [address] [place] [phone] PCP - General Family Medicine 11/26/24
[2024-11-28 17:53] LABS: HCV RNA PCR Qn <1.18 NOT DETECTED Log IU/mL (NOT DETECTED); HCV RNA PCR Qn <15 NOT DETECTED IU/mL (NOT DETECTED)
== END 2024-11-27 12:16 | disposition home or self-care (01) ==
LOC: HO.HMGCLDS 12:15
PROVIDERS: PCP Nurse Practitioner Family; Visit Provider Nurse Practitioner Family
DX: R74.8 Abnormal levels of other serum enzymes (principal); I10 Essential (primary) hypertension
CPT/HCPCS: 36415; 80076; 81003; 85025; 86704; 86706; 86709; 86803; 87340; 87522; 87902

== ENCOUNTER 2025-02-17 08:35 | Outpatient (AMB) | payer MEDICARE, MEDICAID, SELFPAY ==
--- OUTSIDE RECORDS SUMMARY | 2025-02-12 09:20 | XMS_ITS | Encounter Summary ---
Author Organization [facility] [address] Address [address] [place] [address] Care Team Providers Care Web Master Name Role Phone Don Gutierrez NP Primary Care Provider + [phone] Reason for Visit * Reason Comments Follow-up Encounter Details Date Type Department Care Team (Late st Contact Info) Description 02/12/2025 9:20 AM EDT Office Visit [facility] [address] [facility] [address] [place] [address] Brenda Baxter MD [address] [place] [address] Chronic heart failure with preserved ejection fraction (CMS/HCC V24, CMS/HCC V28) (Primary Dx); Primary hypertension Social History Tobacco Use Types Packs/Day Years Used Date Smoking Tobacco: Never Smokeless Tobacco: Never Alcohol Use Standard Drinks/Week Comments Not Currently 0 (1 standard drink = 0.6 oz pur e alcohol) Comments Unknown Sex and Gender Information Value Date Recorded Sex Assigned at Not on file Legal Sex Female 8:44 PM EST Gender Identity Not on file Sexual Orientation Not on file documented as of this encounter Last Filed Vital Signs Vital Sign Reading Time Taken Comments Blood Pressure 138/80 02/12/2025 9:18 AM EDT Pulse 62 02/12/2025 9:18 AM EDT Temperature - - Respiratory Rate - - Oxygen Saturation 95% 02/12/2025 9:18 AM EDT Inhaled Oxygen Concentration - - Weight 58.4 kg (128 lb 12.8 oz) 02/12/2025 9:18 AM EDT Height 143.5 cm (4' 8.5 ) 02/12/2025 9:18 AM EDT Body Mass Index 28.37 02/12/2025 9:18 AM EDT documented in this encounter Ordered Prescriptions Prescription Sig Dispense Quantity Refills Last Filled Start Date End Date empagliflozin (Jardiance) 10 mg tablet Take 1 tablet (10 mg total) by mouth 1 (one) time each day in the morning. 30 tablet 3 02/12/2025 02/12/2026 documented in this encounter Progress Notes * Brenda Baxter MD - 02/12/2025 9:20 AM EDT [facility] PCP: DON GUTIERREZ, GRUBBER I have obtained verbal consent from Isabel Shannon prior to the recording. I have advised Isabel Shannon that she may refuse the recording and require the recording to be turned off at any time during this encounter. Isabel Shannon is a 79 y.o. female. She presents for cardiac follow up. She has the following cardiac issues: 1. HFpEF-with advanced diastolic dysfunction and restrictive filling profile by echo on 11/20- at [facility] 2. Hypertension 3. Hyperlipidemia She also struggles with anxiety, PTSD. History of Present Illness She presents today with her daughter Sussy Cunha-who accompanies her to all of her visits and is a former MA at our practice. She mainly presents to discuss the results of a recent stress test that I ordered and workup of her symptoms of progressive dyspnea on exertion and intermittent lower extremity edema. I met her for the first time in November 2024 to discuss the symptoms for further workup. She had a nuclear stress test on 01/01/2025. She exercised for just over 5 minutes to 92% of max predictedheart rate achieving a 7 MET workload-above average for age and gender. She had normal myocardial perfusion on nuclear imaging without evidence of ischemia or infarction. She was noted to have coronary artery calcifications in the LAD territory on CT scan performed for attenuation correction purposes only. She mentioned that her stress test went well and felt she could have gone longer, although she felta bit unsteady on the treadmill. Despite feeling anxious, she stays active by walking at home for 15 minutes straight and sometimes for 30 minutes. She also walks to the store and back, which takes ab out 20 minutes. However, over the past 2 years, she has noticed that she gets short of breath even after walking short distances of 20 to 30 feet. She also has swelling in her legs. She hasn't used her walking pad since [place] but has been using a walker to get around outside. She avoids using awheelchair because of past spasms. She hasn't had any urinary or yeast infections and has a historyof panic attacks. She has had kidney stones treated with lithotripsy and currently has one embedded stone. She drinksplenty of water to stay hydrated. She has upcoming appointments with her dentist and urologist and is scheduled for cataract surgery,with an eye measurement appointment later today. ACTIVE MEDICATIONS: Current Outpatient Medications Medication Instructions amLODIPine (NORVASC) 10 mg, Daily blood pressure test kit-medium kit No dose, route, or frequency recorded. cetirizine (ZYRTEC) 10 mg, Daily cholecalciferol (vitamin D3) 50 mcg, Daily cloNIDine (CATAPRES) 0.2 mg, 2 times daily empagliflozin (JARDIANCE) 10 mg, oral, Every morning propranoloL (INDERAL) 10 mg, 2 times daily PAST MEDICAL HISTORY: Patient Active Problem List Diagnosis Date Noted Date Diagnosed Shortness of breath 12/16/2024 Grade III diastolic dysfunction 12/16/2024 Primary hypertension 12/16/2024 Lower extremity edema 12/16/2024 Resolved Problems No resolved problems to display. ALLERGIES: Allergies Allergen Reactions Novocain [Procaine] SOCIAL HISTORY: Social History Tobacco Use Smoking status: Never Smokeless tobacco: Never Substance Use Topics Alcohol use: Not Currently PHYSICAL EXAM: Vitals: 02/12/25 0918 BP: 138/80 BP Location: Left arm Patient Position: Sitting BP Cuff Size: Adult Pulse: 62 SpO2: 95% Weight: 58.4 kg (128 lb 12.8 oz) Height: 1.435 m (56.5 ) Physical Exam General Appearance: Alert and in no acute distress. Neck: Supple, no jugular venous distention. Respiratory: Clear to auscultation bilaterally. Cardiovascular: Regular rate and rhythm, no murmurs or gallops. Musculoskeletal: Normal gait. Extremities: No lower extremity edema, 2+ radial and pedal pulses bilaterally. Skin: Warm and dry. Neurological: Awake, alert and oriented x 3, Cranial nerves II-XII grossly intact. EKG: Encounter Date: 12/16/24 ECG 12 lead Result Value Ventricular Rate ECG 58 Atrial Rate 58 P-R Interval 178 QRS Duration 86 Q-T Interval 390 QTc 382 P Wave Sarles 77 R Sarles 60 T Sarles 62 ECG Interpretation Sinus bradycardia Otherwise normal ECG When compared with ECG of 17-JUL-2023 06:44, Questionable change in QRS axis Nonspecific T wave abnormality now evident in Lateral leads Confirmed by BRENDA BAXTER ([id number]) on 12/16/2024 12:45:29 PM *Note: Due to a large number of results and/or encounters for the requested time period, some results have not been displayed. A complete set of results can be found in Results Review. TESTING: Results Imaging - Echocardiogram: Advanced diastolic dysfunction Diagnostic Testing - Exercise nuclear stress test: Negative for ischemic heart disease 79 y.o. female who presents for cardiac follow-up of the below mentioned issues. Clinically she is euvolemic on exam but still experiences exertional dyspnea. Please see problem specific recommendations below. Assessment & Plan 1. Heart failure with preserved ejection fraction (HFpEF): - Advanced diastolic dysfunction on echocardiogram and a negative exercise nuclear stress test, indicating no significant ischemic heart disease. - Focus on treating HFpEF with disease-modifying agents. - Jardiance 10 mg daily will be initiated. - Side effects, including urinary tract infections (UTIs) and yeast infections, were discussed. Given her history of nephrolithiasis but no UTIs, it is hoped she will tolerate the medication well. - A 30-day supply of Jardiance 10 mg will be provided as a trial. - Continue exercise conditioning and regular aerobic exercise, even in short, frequent spurts. - If she develops a UTI or other issues with Jardiance, spironolactone may be considered as an alternative. 2. Hypertension: - Well controlled on the current regimen of amlodipine and propranolol. - Continue these medications. 3. Hyperlipidemia: - Obtain the most recent cholesterol profile from her primary care physician (PCP). Follow-up: - Follow up in 6 months. Follow up in about 6 months (around 08/14/2025). Thank you for allowing us to participate in the care of this patient. CC: DON GUTIERREZ, BRITTANY The [facility] team will continue to co-manage this patient following the plan of care as established by my initial visit and as per AHA guidelines for ongoing management and surveillance of the above mentioned issues. This will include medication titration, initiation of appropriate medications and further titration, and diagnostic studies to manage this disease process. This note was dictated using voice recognition software. Please pardon any grammatical or syntax errors. documented in this encounter Plan of Treatment Not on file documented as of this encounter Visit Diagnoses Diagnosis Chronic heart failure with preserved ejection fraction (CMS/HCC V24, CMS/HCC V28)- Primary Primary hypertension Unspecified essential hypertension documented in this encounter Care Teams Web Master Relationship Specialty Start Date End Date Don Gutierrez NP [address] [place] [address] PCP - General Family Medicine 02/12/25 documented as of this encounter
--- NOTE | 2025-02-17 08:00 | MHC.PC.OV ---
Intake Visit Reasons: PRE OP-EYE SURG- [id number] Allergies procaine (From Novocain) Allergy (Unknown, Verified 02/17/25 08:02) unknown milk (MILK) Adverse Reaction (Unknown, Verified 02/17/25 08:02) STOMACH UPSET SEASONAL ALLERGIES Allergy (Unknown, Uncoded 02/17/25 08:02) SINUS PROBLEMS From Novocain Adverse Reaction (Mild, Uncoded 02/17/25 08:02) PANIC ATTACK Medication List - Last Reconciled 02/17/25 by VALERY AlvaradoP- amlodipine 10 mg PO DAILY blood pressure test kit-medium As directed cetirizine 10 mg PO DAILY 90 days cholecalciferol (vitamin D3) 50 mcg PO DAILY 90 days clonidine HCl 0.2 mg PO DAILY docusate sodium (Colace) 100 mg PO DAILY propranolol 20 mg PO BID Tobacco use date assessed: 04/01/24 Dental Screening Dental Screen Date: 04/01/24 HPI PRE OP-EYE SURG- [id number] HPI Details History of Present Illness The patient is a 80-year-old female presenting with a preoperative evaluation for cataract surgery. She was last seen in September of this year for an in-house visit where a physical examination was conducted. Currently, the visit is conducted via telehealth with her daughter present. The patient reports excitement about the upcoming cataract procedure, which will be performed one eye at a time. She denies experiencing fever, chills, headaches, chest pain, or shortness of breath. She does report some blurred vision and denies dizziness. Review of Systems - General: Denies fever, chills. - Neurological: denies dizziness. Denies headaches. - Ophthalmologic: Reports blurred vision. - Cardiovascular: Denies chest pain. - Respiratory: Denies shortness of breath. Plan The patient is cleared for cataract surgery based on the current telehealth evaluation and previous in-house examination. The procedure will be conducted one eye at a time, and the patient is advised to follow up post-surgery for further evaluation and management. Discussion Notes I discussed with the patient and her daughter the plan for cataract surgery, including the procedure being done one eye at a time. I explained that she is cleared for surgery based on today's telehealth evaluation and her previous in-house examination. We also discussed the importance of follow-up care post-surgery to monitor her recovery and address any concerns. Patient Instructions - Follow up after cataract surgery for further evaluation. - Monitor for any changes in vision or new symptoms and report them immediately. [facility] Medical History Osteoporosis Surgical History S/P ureteral stent placement S/P foot surgery, left Family History Father No problems noted. Mother HTN (hypertension) Stroke Sister No problems noted. Daughter No problems noted. Social History Housing: Apartment Alcohol intake: former Patient Tobacco Use Status: Former Tobacco user Cigarettes Per Day: 2 Years Smoked: 10 years ago Packs per year/per ci.00 e-Cigarette/Vaping Use: Never Used Second Hand Smoke Exposure: No Current occupational status: retired Cognitive needs: No Hearing needs: No Vision needs: No Questionnaire Thrive Questionnaire Date Thrive assessed: 10/23/24 CLIFFORD-7 AMB Questionnaire CLIFFORD-7 Date CLIFFORD - 7 assessed: 04/01/24 Source: Developed by Drs. Bill Lizama, Yun Belcher, Xander Villalpando and colleagues, with an educational fermin from [employer]. Physical exam (Primary Care) Tobacco/Smoking Status: Tobacco use Status Tobacco use date assessed 04/01/24 02/17/25 08:02 Patient Tobacco Use Status Former Tobacco user 02/17/25 08:02 e-Cigarette/Vaping Use Never Used 02/17/25 08:02 Thrive Assessment: Date of Thrive Assessment Date Thrive assessed 10/23/24 02/17/25 08:02 Telehealth Telehealth Telehealth Platform: [facility] Location of provider rendering services: practice address Location of patient: address on file Patient Identification confirmed using: Name, : Yes Telehealth method: video Patient verbally consented to treatment: Yes Patient verbally consented to billing insurance company: Yes Patient informed of any privacy concerns related to visit: Yes Minutes spent on Phone/Video with Pt.: 12 Coding Level of Care Code Tele Est Pt Level 3 (38002) Diagnoses Pre-op evaluation Z01.818 Assessment & Plan Assessment & Plan (1) Pre-op evaluation: Code(s): Z01.818 - Encounter for other preprocedural examination Category: Medical Plan . Orders: Referrals Lung Cancer Screening Referral F17.200 - Nicotine dependence, unspecified, uncomplicated
== END 2025-02-17 08:36 | disposition home or self-care (01) ==
LOC: HO.HMCC 08:35
PROVIDERS: PCP Nurse Practitioner Family; Visit Provider Nurse Practitioner Family
DX: Z01.818 Encounter for other preprocedural examination (principal)

== ENCOUNTER → 2025-02-17 08:35 | Outpatient (BNVA) | payer MEDICARE, MEDICAID, SELFPAY | PROVIDERS: PCP Nurse Practitioner Family; Visit Provider Nurse Practitioner Family | DX: Z01.818 Encounter for other preprocedural examination (principal); Z13.89 Encounter for screening for other disorder; F17.200 Nicotine dependence, unspecified, uncomplicated ==

== ENCOUNTER 2025-04-30 10:58 | Outpatient (REF) | payer MEDICARE, MEDICAID, SELFPAY ==
--- NOTE | ~2025-04-30 | MM_ITS ---
EXAMINATION: MM SCREENING DIGITAL BREAST TOMOSYNTHESIS, BILATERAL CLINICAL INFORMATION: Screening. Asymptomatic. COMPARISON: Mammography: Comparison is made with available priors TECHNIQUE: Digital breast mammography with tomosynthesis is performed in both the craniocaudal and mediolateral oblique views along with computer-aided detection (CAD). FINDINGS: There are scattered areas of fibroglandular density (ACR BI-RADS breast composition Category b). There are no significant masses, abnormal calcifications, or other abnormalities. MM/MM tomosynthesis screening BI IMPRESSION: No mammographic evidence of malignancy. ASSESSMENT: BI-RADS BI-RADS 1 - Negative RECOMMENDATION: Routine annual mammography screening. 1 year F/U This examination should not preclude the clinical evaluation of a suspicious palpable abnormality. This patient's information was entered into a reminder system with a target due date for their next mammogram. Electronically signed by: Rashida Yoder DO 05/02/2025 04:14 PM EDT
--- NOTE | ~2025-04-30 | MM_ITS ---
STUDY: DUAL ENERGY X-RAY ABSORPTIOMETRY / DXA REASON FOR EXAM: Female, 80 years old Z78.0 - Asymptomatic menopausal state TECHNIQUE: Bone Mineral Density (BMD) measurements of the lumbar spine and left hip were obtained using [employer] COMPARISON: April 25, 2023 FINDINGS: L1-L2 BMD: 0.945 g/cm2 L1-L2 T score: -1.8. This corresponds to osteopenia. This represents a 7.4* % increase in bone density compared with prior exam from April 25, 2023. Left femoral neck BMD: 0.691 g/cm2 Left femoral neck T score: -2.5. This corresponds to osteoporosis. Left total hip BMD: 0.718 g/cm2 Left total hip T score: -2.3. This corresponds to osteopenia. This represents a 38.9* % increase in bone density compared with prior exam from April 25, 2023. * - Indicates a statistically significant change. MM/XR DEXA axial skeleton IMPRESSION: Osteoporosis Reference Information: The T-score is the number of standard deviations above or below the standard which is normal for young adults at their peak bone mineral density. The World Health Organization (WHO) interprets the T-scores as follows: At or above -1 SD Normal bone density Between -1 and -2.5 SD Osteopenia At or below -2.5 SD Osteoporosis Electronically signed by: Ruchi Santos MD 05/01/2025 11:13 AM EDT
--- OUTSIDE RECORDS SUMMARY | 2025-04-30 13:14 | XMS_ITS | Clinical Summary ---
Author Organization [facility] Address [address] [facility] [place] [address] Phone Care Team Providers Care Audio Video Tech Name Role Phone Momo Gutierrez NP Primary Care Provider [phone] Allergies Active Allergy Reactions Criticality Noted Date Comments Procaine 02/12/2025 Medications amLODIPine (NORVASC) 10 mg tablet Take 1 tablet (10 mg total) by mouth 1 (one) time each day. Active blood pressure test kit-medium kitIndications:S hortness of breath Active cetirizine (ZyrTEC) 10 mg tablet Take 1 tablet (10 mg total) by mouth 1 (one) time each day. Active cholecalciferol, vitamin D3, 50 mcg (2,000 unit) tablet,chewable Chew 1 tablet (50 mcg total) 1 (one) time each day. Active cloNIDine (CATAPRES) 0.2 mg tablet Take 1 tablet (0.2 mg total) by mouth 2 (two) times a day. Active propranoloL (INDERAL) 10 mg tablet Take 1 tablet (10 mg total) by mouth 2 (two) times a day. Active empagliflozin (Jardiance) 10 mg tablet Take 1 tablet (10 mg total) by mouth 1 (one) time each day in the morning. 30 tablet 3 02/12/2025 Active Active Problems Problem Noted Date Diagnosed Date Chronic heart failure with p reserved ejection fraction (CMS/HCC V24, CMS/HCC V28) 12/16/2024 Overview (02/12/2025): - Has been worsening over the past couple of years-starting around October 2022 - Had an echocardiogram at [facility] in October 2024 showing normal left ventricular size and systolic function, normal regional wall motion with an ejection fraction of 60 to 65%, evidence of grade 3 diastolic dysfunction consistent with severe left atrial pressure increase, normal RV size and systolic function, evidence of an interatrial septal aneurysm that was incidental, borderline pulmonary hypertension. -I met her in November 2024 and ordered an exercise nuclear stress test-ultimately performed in November 2024-patient exercised for just over 5 minutes to 92% of max predicted heart rate achieving a 7 MET workload-above average for age and gender with normal myocardial perfusion without evidence of ischemia or infarction and normal ejection fraction Primary hypertension 12/16/2024 Lower extremity edema 12/16/2024 Resolved Problems Problem Noted Date Diagnosed Date Resolved Date Grade III diastolic dysfunction 12/16/2024 02/12/2025 Encounters Date Type Department Care Team Description 02/12/2025 9:20 AM EDT Office Visit [facility] [address] [place] [address] Brenda Watt MD Chronic heart failure with preserved ejection fraction (CMS/HCC V24, CMS/HCC V28) (Primary Dx); Primary hypertension from Last 3 Months Social History Tobacco Use Types Packs/Day Years Used Date Smoking Tobacco: Never Smokeless Tobacco: Never Tobacco Cessation:Counseling Given: Not Answered Alcohol Use Standard Drinks/Week Comments Not Currently 0 (1 standard drink = 0.6 oz pur e alcohol) Comments Unknown Sex and Gender Information Value Date Recorded Sex Assigned at Not on file Legal Sex Female 8:44 PM EST Gender Identity Not on file Sexual Orientation Not on file Obstetrics History Last Filed Vital Signs Vital Sign Reading [...] Mass Index 28.37 02/12/2025 9:18 AM EDT Plan of Treatment Health Maintenance Due Date Last Done Comments Zoster Vaccines (1 of 2) 1997 RSV Immunization Adult Patients (1 - 1-dose 75+ series) 2022 DTaP,Tdap,and Td Vaccines (2 - Td or Tdap) 04/21/2022 04/21/2012 Cholesterol Screening (Lipid Panel) 09/22/2023 Falls Risk Assessment 09/22/2023 Hepatitis C Screening 09/22/2023 Medicare Annual Wellness Visit 09/22/2023 Osteoporosis Screening (Bone Density Screening) 09/22/2023 Social Influencers of Health Screening 09/22/2023 Depression Screening 08/28/2024 Hypertension/CHF/CAD Annual BMP Blood Test 12/24/2024 12/25/2023 COVID-19 Vaccine ( season) 2025 10/02/2021, 11/30/2020, 11/09/2020 Influenza Vaccine (#1) 2025 8, 08/18/2016, 11/16/2015, Additional history exists Pneumococcal Vaccine: 50+ Years Completed 03/07/2022, 10/12/2017, 08/18/2016 HIB Vaccines Aged Out No longer eligi [...] age to complete this topic Meningococcal B Vaccine Aged Out No l onger eligible based on patient's age to complete this topic RSV Immunization Patients Under 20 months Aged Out No longer eligible based on patient's age to complete this topic Varicella Vaccines Aged Out No longer eligible based on patient's age to complete [place] [id number] H[employer] MEDICARE ADVANTAGE on file [place] Care Teams Audio Video Tech Relationship Specialty Start Date End Date Momo Gutierrez NP [address] [place] [address] PCP - General Family Medicine 02/12/25
--- OUTSIDE RECORDS SUMMARY | 2025-04-30 13:14 | XMS_ITS | Clinical Summary ---
Author Organization [facility] Address [address] [place] [address] Phone Care Team Providers Care Nurse Informaticist Name Role Phone Momo Gutierrez TICKER WIRER Primary Care Provider + Allergies Active Allergy Reactions Criticality Noted Date Comments Procaine 01/30/2024 Panic attack Medications amLODIPine (NORVASC) 10 MG tablet Take 1 tablet by mouth every morning. 10/24/19 24 Active VITAMIN D3 50 mcg (2,000 unit) capsule Take 1 capsule by mouth every morning. 10/25/19 24 Active cloNIDine HCL (CATAPRES) 0.2 MG tablet Take 1 tablet by mouth every morning. 08/25/20 23 Active propranoloL (INDERAL) 20 MG immediate release tablet Take 1 tablet by mouth 2 (two) times a day. 10/24/19 24 Active CYANOCOBALAMIN, VITAMIN B-12, ORAL Take by mouth. Activ e teriparatide (FORTEO) 20 mcg/dose (600mcg/2.4mL) PnIjIndications: Other osteoporosis without current pathological fracture Inject 0.08 mL under the skin daily. 2.4 mL ML 01/30/20 24 Active insulin pen needles, disposable, 31 gauge x 01/10 NdleIndications: Other osteoporosis without current pathological fracture 1 each by Miscellaneous route every morning. 100 each 3 01/30/20 24 Active Active Problems Problem Noted Date Diagnosed Date Other osteoporosis without current pathological fracture 11/20/2023 Assessment & Plan (01/30/2024 11:17 AM EDT): The patient has osteoporosis which is moderately advanced please see her risk factors above. She did not appear to have any additional risk factors biochemical workup. I recommend she use anabolic hormones Forteo as she does not have contraindications and has advanced osteoporosis. She could continue dietary calcium and vitamin D supplement. Assessment & Plan (11/20/2023 11:13 AM EDT): 78-year-old woman who was diagnosed with osteoporosis on 10/01/2010 and has progressed to advanced osteoporosis based on her most recent DXA scan. Her risk factors for osteoporosis include age, menopause, vitamin D deficiency, remote tobacco use and alcoholism. She did have 1 fracture of the wrist but this was somewhat traumatic. She has lost close to 2 inches in height. Currently she is on vitamin D supplements no calcium supplements. I will request biochemical workup for evaluation of secondary causes of osteoporosis. I have discussed with follow-up possible management of osteoporosis and I have given her information on antiresorptive and anabolic hormones that she may benefit from for management of osteoporosis as follows: The antiresorptive medications are the bisphosphonates and rank ligand antagonists. The bisphosphonates come in oral form and IV form. The oral form is alendronate, this is a 70 mg tablet that is taken once a week with water on an empty stomach. The patient must not eat for 30 minutes and remain upright in a sitting or standing position. This medication may be associated with reflux. This medication can be used up to 5 years and at that point we reevaluate. If the bone density has not improved we can switch to another medication or continue the same medications for another 5 years. If there is improvement in bone mineral density then we can do a drug holiday. The IV form is called zoledronic acid/ Reclast. This is administered in the hospital as a yearly infusion. This medication can be used up to 3 years. Again this medication also can be repeated for another 3 years if there is insufficient bone mineral density or the medication could be switch for something else. If good bone improvement then we can consider a drug holiday. It is associated with flulike symptoms such as muscle aches, headaches, etc. The other antiresorptive medication is rank ligand antagonist such as Prolia/ denosumab. This medication is administered subcutaneously in the office every 6 months. With this medication you have to have adequate calcium intake otherwise hypocalcemia may develop. Furthermore the medication must not be missed there is a 2-week window in which the patient must have the injection. If the patient misses the injection then there will be rapid decrease in bone mineral density. Furthermore if the patient wants to stop the medication that we will have to take alendronate for period of 1 year. If the patient does not take any medications at all after stopping Prolia then they will return to their original bone mineral density within 12 months. All of these medications are associated with atypical femur fracture and jaw necrosis after prolonged use. Prolonged use is considered to be approximately 5 years. The risk of atypical femur fracture approximately 0.8% and for jaw necrosis is approximately 0.1%. This can translate to up to 5 people out of 10,000. There are other medications such as anabolic hormones. These include Forteo and Tymlos which are basically the same medication but different brands. These medications are injected by the patient on a daily basis at nighttime right before going to bed. This medication is good for period of 2 years. It is administered in the evening because it could be associated with dizziness. The last medication is Evenity which is administered in the office on a monthly basis for period of 1 year. This medication cannot be used if the patient had a myocardial infarction within the last 6 months. The anabolic hormones are very expensive and normally for a patient who has not use any of these medications they usually get one of the antiresorptive medications such as alendronate, zoledronic acid or Prolia. Family History Medical History Relation Comments Cirrhosis Father Anxiety disorder Mother Hypertension Mother Relation Status Comments Father Mother Social History Tobacco Use Types Packs/Day Years Used Date Smoking Tobacco: Former Cigarettes Smokeless Tobacco: Never Tobacco Cessation:Counseling Given: Not Answered Alcohol Use Standard Drinks/Week Comments Never 0 (1 standard drink = 0.6 oz pur e alcohol) Education Answer Date Recorded Are you interested in more education? Not on yesica e 09/14/2023 Are you concerned about learning? Not on file 09/14/2023 No 09/14/2023 No 09/14/2023 Digital Access Answer Date Recorded No 09/14/2023 No 09/14/2023 Reliable internet access at home? Not on file 09/14/2023 Device with a working camera? Not on file Comments Unknown Sex and Gender Information Value Date Recorded Sex Assigned at Not on file Legal Sex Female 10:01 AM EST Gender Identity Not on file Sexual Orientation Not on file Last Filed Vital Signs Vital Sign Reading Time Taken Comments Blood Pressure 110/60 01/30/2024 10:47 AM EDT Pulse 88 01/30/2024 10:47 AM EDT Temperature - - Respiratory Rate - - Oxygen Saturation 95% 01/30/2024 10:47 AM EDT Inhaled Oxygen Concentration - - Weight 56.4 kg (124 lb 6.4 oz) 01/30/2024 10:47 AM EDT Height 144 cm (4' 8.69 ) 01/30/2024 10:47 AM EDT Body Mass Index 27.21 01/30/2024 10:47 AM EDT Plan of Treatment Health Maintenance Due Date Last Done Comments Adult Td,Tdap Booster 1947 LIPID PANEL 1947 DEPRESSION SCREENING 1959 SMOKING Hx and SMOKELESS TOB ACCO SCREENING 02/17/1960 HEPATITIS C SCREENING 1965 PNEUMOCOCCAL VACCINES (50+ y ears) (1 of 1 - PCV) 1997 ZOSTER VACCINES (1 of 2) 1997 OSTEOPOROSIS SCREENING INITI AL (ONE-TIME) 02/17/2012 RSV VACCINE (1 - 1-dose 75+ series) 2022 COVID-19 VACCINE ( - 2023-2 5 season) 2024 HEPATITIS A VACCINES Aged Out No long er eligible based on patient's age to complete this topic HIB VACCINES Aged Out No longer eligi ble based on patient's age to complete this topic MENINGOCOCCAL VACCINES (ACWY) Aged Out No longer eligible based on patient's age to complete this topic MENINGOCOCCAL VACCINES (B) Aged Out N o longer eligible based on patient's age to complete this topic Medical Devices Not on file Insurance [place] [id number] [employer] MEDICARE PART A & B H[employer] PPO MEDICARE REPLACEMENT [place] [id number] [facility] MEDICARE PART A & B [employer] [place] [id number] [facility] MEDICARE PART A & B [employer] PPO [facility] RE[facility] B [facility] RE[facility] A & B [employer] MEDICARE REPLACEMENT [place] [id number] [facility] MEDICARE PART A & B [employer] PPO MEDICARE REPLACEMENT [place] [id number] Care Teams Nurse Informaticist Relationship Specialty Start Date End Date Momo Gutierrez NP [facility] [place] [address] PCP - General Nurse Practitioner 07/25/23 Additional Source Comments The information contained in this document represents components of the legal health record. It is not the complete legal health record.[facility]
== END 2025-04-30 10:59 | disposition home or self-care (01) ==
LOC: HO.MAMMO 10:58
PROVIDERS: PCP Nurse Practitioner Family; Visit Provider Nurse Practitioner Family
DX: Z12.31 Encounter for screening mammogram for malignant neoplasm of breast (principal); M81.0 Age-related osteoporosis without current pathological fracture; Z78.0 Asymptomatic menopausal state
CPT/HCPCS: 77063; 77067; 77080

== ENCOUNTER → 2025-04-30 11:30 | Outpatient (BNV) | payer MEDICARE, MEDICAID, SELFPAY | PROVIDERS: PCP Nurse Practitioner Family; Visit Provider Radiology Body Imaging | DX: E28.39 Other primary ovarian failure (principal) | CPT/HCPCS: 77080 ==

== ENCOUNTER 2025-05-26 10:07 | Outpatient (REF) | payer MEDICARE, MEDICAID, SELFPAY ==
--- OUTSIDE RECORDS SUMMARY | 2025-05-26 11:18 | XMS_ITS | Clinical Summary ---
Author Organization [facility] Address [address] [place] [address] Phone Care Team Providers Care Microarray Analyst Name Role Phone Momo Gutierrez LOCKS TENDER Primary Care Provider + Allergies Active Allergy [...] VACCINE (1 - 1-dose 75+ series) 2022 INFLUENZA VACCINE (#1) 2025 COVID-19 VACCINE ( - 2023-2 5 season) 2025 HEPATITIS A VACCINES Aged Out No long [...] topic Medical Devices [place] [address] [employer] MEDICARE PART A & B [facility] MEDICARE REPLACEMENT [place] [id number] [facility] MEDICARE PART A & [place] [address] [facility] MEDICARE PART A & B [employer] PPO MEDICARE REPLACEMENT [place] MEDICARE PART A & B [facility] Member Subscriber Plan / Payer (Ef fective 2012-Present) Name:Isabel Shannon Member ID:[id number] Relation to Subscriber:Self Name:Isabel Shannon Subscriber ID:[id number] Payer ID:[id number] Group ID:Not on file Type:Medicare Address: [employer] [facility] [address] [place] [phone] [facility] MEDICARE REPLACEMENT [place] [id number] [facility] MEDICARE PART A & B [employer] PPO MEDICARE REPLACEMENT Care Teams Microarray Analyst Relationship Specialty Start Date End Date Momo Gutierrez NP [address] [place] [address] PCP - General Nurse Practitioner 07/25/23 Additional Source Comments The information contained in this document represents components of the legal health record. It is not the complete legal health record.[facility]
--- OUTSIDE RECORDS SUMMARY | 2025-05-26 11:18 | XMS_ITS | Clinical Summary ---
Author Organization [facility] Address [address] [facility] [place] [address] Phone Care Team Providers Care Home Restoration Service Cleaner Name Role Phone Momo Gutierrez NP Primary Care Provider [phone] Allergies Active Allergy Reactions Criticality Noted Date [...] October 2022 - Had an echocardiogram at [facility] in October 2024 showing normal left [...] Date Grade III diastolic dysfunction 12/16/2024 02/12/2025 Social History Tobacco Use Types Packs/Day Years [...] patient's age to complete this topic Insurance [facility] MEDICARE ADVANTAGE on file [place] - [place] Care Teams Home Restoration Service Cleaner Relationship Specialty Start Date End Date Momo Gutierrez NP [address] [place] [address] PCP - General Family Medicine 02/12/25
[2025-05-26 13:17] LABS: MANUAL DIFF FLAG NO
[2025-05-26 13:33] LABS: Hematocrit 48.9 % (37.0-47.0); Hemoglobin 16.9 g/dl (12.0-16.0); Imm Gran Abs Auto 0.02 X10*3/uL (0.00-0.03); Imm Gran Pct Auto 0.3 % (0.0-0.4); Lymphocytes Absolute Auto 2.7 X10*3/uL (1.2-4.9); Mean Corpuscular HGB Conc 34.6 g/dl (31.0-35.0); Mean Corpuscular Hemoglobin 31.0 pg (27.0-33.0); Mean Corpuscular Volume 89.6 fL (80.0-98.0); NRBC Abs Auto 0.000 X10*3/uL (0.0-0.012); NRBC Pct Auto 0.0 /100WBC (0.0-0.2); Platelet Count 260 X10*3/uL (160-400); Red Blood Count 5.46 X10*6/uL (4.20-5.50); White Blood Count 7.3 X10*3/uL (4.8-10.8)
[2025-05-26 14:00] LABS: Appearance Urine Clear; Glucose Urine UA 500 mg/dL (Negative); PH 6.5 (5.0-9.0); Specific Gravity - Urine 1.015 (1.005-1.025); UMIC TRIGGER UACC YES
[2025-05-26 14:07] LABS: UACC Culture Trigger YES
[2025-05-26 14:14] LABS: Alanine Aminotransferase 20 U/L (0-31); Albumin Level 4.7 g/dL (3.5-5.0); Alkaline Phosphatase 128 U/L (39-117); Anion Gap 11 (12-20); Aspartate Amino Transferase 26 U/L (5-31); Blood Urea Nitrogen 13 mg/dL (9-16); Calcium 9.8 mg/dL (8.4-10.2); Carbon Dioxide 27 mmol/L (22-29); Chloride 107 mmol/L (96-108); Cholesterol 215 mg/dL (<200); Estimated Glomerular Filt Rate > 60; HDL Cholesterol 43 mg/dL (>40); Potassium 4.1 mmol/L (3.3-5.1); Sodium 141 mmol/L (135-145); Total Protein 8.3 g/dL (6.5-8.0); Triglycerides 146 mg/dL (<150)
== END 2025-05-26 10:08 | disposition home or self-care (01) ==
LOC: HO.HMGCLDS 10:07
PROVIDERS: PCP Nurse Practitioner Family; Visit Provider Nurse Practitioner Family
DX: I10 Essential (primary) hypertension (principal); E55.9 Vitamin D deficiency, unspecified
CPT/HCPCS: 36415; 80053; 80061; 81001; 81003; 82306; 84443; 85025; 87086